=== PATIENT | female | born 1970 | race Caucasian/White ===

== ENCOUNTER 2019-12-01 14:30 | Emergency (ER) | payer OTHER, SELFPAY ==
[2019-12-01 14:37] VITALS: BP 120/89; PULSE 86; RESP 20; TEMP 36.6; O2SAT 96
--- NOTE | 2019-12-01 14:58 | ED.URI ---
HPI - URI/Sore Throat General Chief Complaint: Upper Respiratory Infection Stated Complaint: body aches/sore throat Time Seen by Provider: 12/01/19 14:49 Source: patient and RN notes reviewed Mode of arrival: ambulatory Limitations: no limitations History of Present Illness HPI Narrative: Patient presents today complaining of a 2-day history of sore throat, body aches, white spots on the tonsils, headache. Reports chronic cough due to allergies. Denies fever or shortness of breath. Currently rates her pain 4/10 and has been taking Tylenol with some relief. Patient gets COVID-19 testing weekly at her job and has been negative for the past 17 weeks. MD elicited complaint: sore throat Related Data Allergies Allergy/AdvReac Type Severity Reaction Status Date / Time celecoxib Allergy Unknown Itching Verified 11/15/18 16:16 codeine Allergy Unknown Verified 01/04/17 11:37 Penicillins Allergy Unknown Verified 06/27/16 16:04 Review of Systems Review of Systems: Narrative: CONSTITUTIONAL: Denies fever, chills, or sweats. + Body aches EYES: Denies visual changes, redness, or discharge. ENT: Denies rhinorrhea, congestion, or otalgia. + Sore throat CARDIOVASCULAR: Denies chest pain, palpitations, or edema. RESPIRATORY: Denies cough or dyspnea. GASTROINTESTINAL: Denies abdominal pain, nausea, vomiting, or diarrhea. GENITOURINARY: Denies dysuria or hematuria. SKIN: Denies rash, itching, or wounds. MUSCULOSKELETAL: Denies back pain, joint pain, or myalgia. NEUROLOGIC: Denies numbness, tingling, or weakness. + Headache PSYCH: Denies depression or anxiety. [facility] Past Medical History Medical History (Updated 12/01/19 @ 14:59 by Asia Johansen, [facility], ) Anxiety Bulging disc Depression Diabetes Fracture of scaphoid bone of left wrist (01/19/19) HTN (hypertension) Left radial head fracture (01/19/19) Personal history of arthritis Skin abscess Surgical History Surgical History History of (~1987) History of cholecystectomy (~2004) History of medial meniscus repair of left knee (~2007) History of oophorectomy (~1999) Social History Social History Smoking status: Never smoker Alcohol intake: never Comments At time of signature, I have reviewed and agree with nursing past medical, surgical, social and family history unless otherwise noted. Please see nursing chart for further information. There is no relevant family history pertinent to the presenting complaint Exam Narrative: Exam Narrative: GENERAL: Well-appearing, well-nourished, and in no acute distress. HEAD: Normocephalic, atraumatic. EYES: EOMI. No redness or drainage. Conjunctivae normal. ENT: Mucous membranes pink and moist. Nares clear. No rhinorrhea. TMs normal bilaterally. Throat mildly erythematous with tonsils 2+ with white exudate. Uvula midline. NECK: Normal AROM. Supple. Bilateral anterior cervical chain lymphadenopathy. CHEST: No respiratory distress. Clear to auscultation. HEART: Regular rate and rhythm. No murmur appreciated. Normal peripheral pulses. EXTREMITIES: Normal range of motion. No edema. SKIN: Warm, dry, no rash. Capillary refill normal. Normal skin turgor. NEURO: No focal deficits. Alert and oriented x3. Gait steady. PSYCH: Normal affect. No signs of depression or anxiety. Course Vital Signs Vital signs: Vital Signs Temperature 97.9 F 12/01/19 14:37 Pulse Rate 86 12/01/19 14:37 Respiratory Rate 12/01/19 14:37 Blood Pressure 120/89 12/01/19 14:37 Pulse Oximetry 96 12/01/19 14:37 Temperature 97.9 F 12/01/19 14:37 Pulse Rate 86 12/01/19 14:37 Respiratory Rate 12/01/19 14:37 Blood Pressure 120/89 12/01/19 14:37 Pulse Oximetry 96 12/01/19 14:37 Reviewed. Pt has been instructed to follow up with her PCP regarding her elevated blood pressure today. HILDA - URI/Myra
== END 2019-12-01 15:05 | disposition home or self-care (01) ==
PROVIDERS: Emergency Provider Nurse Practitioner
DX: J02.8 Acute pharyngitis due to other specified organisms (principal); F41.9 Anxiety disorder, unspecified; F32.9 Major depressive disorder, single episode, unspecified; E11.9 Type 2 diabetes mellitus without complications; I10 Essential (primary) hypertension
CPT/HCPCS: 87081; 87880; 99213; G0463

== ENCOUNTER 2020-04-01 12:47 | Emergency (ER) | payer OTHER, SELFPAY ==
--- NOTE | ~2020-04-01 | XR_ITS ---
EXAMINATION: XR chest 2V DATE: 04/01/2020 13:40 INDICATION: Cough. TECHNIQUE: Frontal and lateral views of the chest were obtained. COMPARISON: Chest 2 views 06/29/16 FINDINGS: The chest demonstrates clear lungs without pneumonia, pleural effusion, or pneumothorax. Th e heart size is normal. There is a moderate-sized hiatal hernia. Surgical clips in the right upper qu adrant are likely from cholecystectomy. There is mild chronic anterior wedging of multiple vertebral bodies. IMPRESSION: 1. Moderate-sized hiatal hernia. Reviewed, dictated and finalized at location B. DEVELOPER
[2020-04-01 12:58] VITALS: BP 133/78; PULSE 74; RESP 18; TEMP 36.9; O2SAT 97
[2020-04-01 13:08] VITALS: PULSE 72
--- NOTE | 2020-04-01 13:08 | ECG_ITS ---
Measurements Intervals [place] Rate: 77 P: 18 MN: 164 QRS: 40 QRSD: 86 T: 25 QT: 375 QTc: 425 Interpretive Statements SINUS RHYTHM NORMAL ECG Electronically Signed On 04-01-2020 13:12:30 SALES CENTER ASSOCIATE by Gerald Kapadia D.O.
[2020-04-01] MEDS: Please add drug allergy info to patient profile. 1 EACH XX (13:22)
[2020-04-01 13:41] LABS: Basophils Percent Auto 0.4 % (0.2-1.2); Eosinophils Absolute Auto 0.1 K/mm3 (0-0.3); Eosinophils Percent Auto 1.2 % (0-4.4); Hematocrit 37.8 % (37.0-47.0); Hemoglobin 12.5 g/dL (12.0-15.0); Immature Granulocyte Absolute 0.02 K/mm3 (0.00-0.031); Immature Granulocyte Percent A 0.3 % (0-0.5); Lymphocytes Absolute Auto 2.27 K/mm3 (0.9-3.2); Lymphocytes Percent Auto 31.3 % (18.3-44.2); Mean Corpuscular HGB Conc 33.1 g/dl (32-36); Mean Corpuscular Volume 84.6 fl (80-100); Mean Platelet Volume 10.6 fl (7.4-10.4); Monocytes Absolute Auto 0.5 K/mm3 (0.1-0.6); Monocytes Percent Auto 6.3 % (2.6-8.5); Neutrophils Absolute Auto 4.4 K/mm3 (1.3-6.7); Neutrophils Percent Auto 60.5 % (45.5-73.1); Platelet Count Result 288 k/mm3 (150-375); Red Blood Count 4.47 M/mm3 (4.2-5.4); Red Cell Distribution Width 14.3 % (11.5-14.5); White Blood Count 7.3 K/mm3 (4.5-10.0)
[2020-04-01 13:48] VITALS: BP 126/70; PULSE 75; RESP 16; O2SAT 98
--- NOTE | 2020-04-01 13:51 | ED.GENADULT ---
HPI - General Adult General Chief complaint: Chest Pain Stated complaint: chest pain Time Seen by Provider: 04/01/20 12:50 Source: patient Mode of arrival: ambulatory Limitations: no limitations History of Present Illness HPI narrative: Patient presents with chief complaint of sharp stabbing pains just lateral to the left side of her sternum that was present randomly over the past week. Patient states at times he is feels that sharp pain once or twice and other times she still gets up to 12 times. Patient states that she feels that sharp sensations at rest or with activity. She denies having syncope, radiation of pain, diaphoresis, nausea, vomiting, diarrhea, fever, chills, vomiting. Patient states that she wonders if this is a result of the lingering cough she has had since tested positive for Covid on March 10. Patient states that she is occasionally noticeably her mucus. She states she has also had a lingering feeling of shortness of breath that has not worsened or intensified since having Covid. She feels like it is more of a lingering lax of prolonged endurance. Patient states she came to the ER to be evaluated just to be safe. She denies have any history of MA or stroke. Patient reports having hypertension and borderline diabetes. Patient is not having chest pain at this time. Related Data Allergies Allergy/AdvReac Type Severity Reaction Status Date / Time celecoxib [From Celebrex] Allergy Rash Verified 04/01/20 13:11 Penicillins Allergy Rash Verified 04/01/20 13:11 codeine AdvReac Vomiting Verified 04/01/20 13:11 Review of Systems Review of Systems: Narrative: CONSTITUTIONAL: Denies fever, chills, or sweats. EYES: Denies visual changes, redness, or discharge. ENT: Denies rhinorrhea, congestion, sore throat, or otalgia. CARDIOVASCULAR: Reports intermittent sharp chest pain denies palpitations, or edema. RESPIRATORY: Reports cough and lingering dyspnea with exertion denies dyspnea. GASTROINTESTINAL: Denies abdominal pain, nausea, vomiting, or diarrhea. GENITOURINARY: Denies dysuria or hematuria. SKIN: Denies rash or itching. MUSCULOSKELETAL: Denies back pain, joint pain, or myalgia. NEUROLOGIC: Denies headache, numbness, dizziness, or weakness. PSYCHIATRIC: Denies anxiety or depression. Exam Narrative: Exam Narrative: GENERAL: Well-appearing, well-nourished, and in no acute distress. HEAD: Normocephalic, atraumatic. EYES: PERRLA and EOMI. ENT: Bilateral TMs pearly coulter nonbulging NECK: Supple. No adenopathy or masses. Range of motion intact CHEST: Clear to auscultation. No respiratory distress. No wheezes rales or rhonchi. No tachypnea. HEART: Regular rate and rhythm. ABDOMEN: Soft, nontender, nondistended, normal active bowel sounds. EXTREMITIES: Normal range of motion. No edema. SKIN: Warm, dry, no rash. NEURO: No focal deficits. Alert and oriented x3. PSYCH: Normal mood and affect. Course Vital Signs Vital signs: Vital Signs Temperature 98.4 F 04/01/20 12:58 Pulse Rate 74 04/01/20 12:58 Respiratory Rate 18 04/01/20 12:58 Blood Pressure 133/78 04/01/20 12:58 Pulse Oximetry 97 04/01/20 12:58 Temperature 98.4 F 04/01/20 12:58 Pulse Rate 76 04/01/20 15:50 Respiratory Rate 20 04/01/20 15:50 Blood Pressure 133/78 04/01/20 15:50 Pulse Oximetry 98 04/01/20 15:50 Medical Decision Making MDM Narrative Medical decision making narrative: Patient is troponin, EKG and lab work is stable. Patient's x-ray imaging shows that she has a moderate sized hiatal hernia. Discussed with patient hiatal hernia protocol and the need for follow-up. Patient is not having persistent pain or any vomiting. Patient is resting comfortably in her bed at this time. Patient verbalized that she understands the need for follow-up. She states that she will follow-up and return will return to the emergency department if she develops any emergent symptoms. Differential Diagnosis Differential Diagnos
[2020-04-01 13:52] LABS: Alanine Aminotransferase 38 U/L (4-35); Alkaline Phosphatase 63 U/L (38-126); Anion Gap 5 mmol/L (8-16); Aspartate Amino Transferase 32 U/L (14-36); Bilirubin,Total 0.5 mg/dL (0.2-1.3); Blood Urea Nitrogen 15 mg/dL (7-17); Calcium 9.1 mg/dL (8.4-10.2); Carbon Dioxide 31 mmol/L (22-30); Chloride 102 mmol/L (98-107); Estimated CRCL calculation 84 ml/min; Estimated Glomerular Filt Rate > 60; Glucose 148 mg/dL (65-105); Potassium 3.8 mmol/L (3.4-5.0); Sodium 138 mmol/L (137-145)
[2020-04-01 14:02] LABS: Add Urine Microscopic? YES; Appearance Urine Clear (Clear); Bacteria Urine Trace /hpf; Bilirubin Urine Negative (Negative); Blood Urine Negative (Negative); Color Urine Yellow (Yellow); Glucose Urine UA Negative (Negative); Ketones Urine Negative (Negative); Leukocyte Esterase Ur Trace LEU/UL (Negative); Mucus Urine Rare /lpf; Nitrate Urine Negative (Negative); Protein Urine Negative (Negative); RBC Urine 0-2 /hpf (0-2); Specific Grav Ur 1.015 (1.001-1.035); Squamous Epithelial Cell Urine Few /hpf (Few); Urobilinogen Urine Negative mg/dL (<2.0); WBC Urine 0-3 /hpf
[2020-04-01 14:03] LABS: Troponin I < 0.012 ng/mL (0.000-0.034)
[2020-04-01 14:30] VITALS: BP 119/64; PULSE 69; RESP 20; O2SAT 97
[2020-04-01 15:08] LABS: D Dimer 0.37 ug/mL (<0.48)
[2020-04-01 15:11] VITALS: BP 116/70; PULSE 75; RESP 18; O2SAT 97
[2020-04-01 15:50] VITALS: BP 133/78; PULSE 76; RESP 20; O2SAT 98
== END 2020-04-01 15:50 | disposition home or self-care (01) ==
PROVIDERS: Physician Assistant; Emergency Provider Emergency Medicine; PCP Family Medicine
DX: K44.9 Diaphragmatic hernia without obstruction or gangrene (principal)
CPT/HCPCS: 36415; 71046; 80053; 81001; 84484; 85025; 85380; 93005; 99284

== ENCOUNTER 2021-03-01 13:32 | Outpatient (CLI) | payer OTHER, SELFPAY ==
--- NOTE | ~2021-03-01 | MM_ITS ---
EXAMINATION: MM diagnostic randy BI w vero HISTORY: Possible abscess of the skin of the breasts TECHNIQUE: Craniocaudal, mediolateral, and mediolateral oblique 3-D tomosynthesis images of the breas ts were performed and synthetic 2-D images were generated. CAD analysis was submitted and interpreted . COMPARISON: 03/11/2015, 11/27/2012, 11/13/2012 BREAST PARENCHYMAL COMPOSITION: The breasts are almost entirely fatty. FINDINGS: There is no evidence of suspicious mass, calcification, or architectural distortion in eith er breast to suggest malignancy. There has been no suspicious interval change. There are sebaceous c ysts in the middle third of the outer right breast the 9:00 location in the inframammary fold of the slightly inner right breast. IMPRESSION: 1. Sebaceous cysts without mammographic evidence of malignancy. 2. Recommend routine screening mammography in one year. BI-RADS Category 2: Benign finding(s). Reviewed, dictated and finalized at location A. STRAIGHTENER
== END 2021-03-01 13:33 | disposition home or self-care (01) ==
LOC: ANHIMG 13:34
PROVIDERS: PCP Family Medicine; Visit Provider Nurse Practitioner Family
DX: N61.1 Abscess of the breast and nipple (principal); N60.01 Solitary cyst of right breast
CPT/HCPCS: 77062; 77066; G0279

== ENCOUNTER 2021-06-09 14:45 | Emergency (ER) | payer OTHER, SELFPAY ==
--- NOTE | ~2021-06-09 | XR_ITS ---
XR abdomen/kub 1V DATE: 06/09/2021 15:21 INDICATION: Left flank pain, hematuria TECHNIQUE: Supine AP view COMPARISON: 12/04/[address] abdomen pelvis FINDINGS: Surgical clips, right upper quadrant, consistent with cholecystectomy. The psoas shadows are intact. No visceromegaly is evident. There is a prominent of fecal material in the right and transverse colon. No bowel obstruction. No urinary tract calcification is noted. Bilateral calcified pelvic phleboliths. IMPRESSION: Nonspecific abdomen Status post cholecystectomy Reviewed, dictated and finalized at Location A. Reviewed, dictated and finalized at location A.
[2021-06-09 14:56] VITALS: BP 135/72; PULSE 79; RESP 16; TEMP 36.4; O2SAT 100
--- NOTE | 2021-06-09 14:59 | ED.FEMALEGU ---
HPI - Female Genitourinary General Chief complaint: Urogenital-Female Stated complaint: uti symptoms Time Seen by Provider: 06/09/21 14:59 Source: patient and RN notes reviewed Mode of arrival: ambulatory Limitations: no limitations History of Present Illness HPI Narrative: 50y/o female presented for c/o dysuria, frequency, odor, and bladder spasms for the last few days. Also endorses left lateral abdominal pain. States she was prescribed Rx macrobid 05/05/21 for UTI, was instructed to stop when culture revealed normal maryse no infection. She continued the antibiotic at the time because it was almost completed. States sx improved. Denies associated hematuria, flank pain, n/v/d/constipation f/c. Related Data Home Medications Medication Instructions Recorded Confirmed loratadine 10 mg tablet 10 mg PO DAILY 01/08/21 06/09/21 sertraline 100 mg tablet 150 mg PO DAILY tablet 01/08/21 06/09/21 Allergies Allergy/AdvReac Type Severity Reaction Status Date / Time celecoxib Allergy Unknown Itching Verified 06/09/21 14:48 codeine Allergy Unknown Unknown Verified 06/09/21 14:48 Penicillins Allergy Unknown unknown Verified 06/09/21 14:48 Review of Systems Review of Systems: CONSTITUTIONAL: Denies body aches, fever, chills, or sweats. CARDIOVASCULAR: Denies chest pain, palpitations, or edema. RESPIRATORY: Denies cough or dyspnea. GASTROINTESTINAL: Denies abdominal pain, nausea, vomiting, or diarrhea. GENITOURINARY: Reports dysuria, frequency, urgency,denies hematuria, flank pain SKIN: Denies rash, itching, or wounds. MUSCULOSKELETAL: Denies back pain or myalgia. [facility] Past Medical History Medical History Anxiety Asthma Bulging disc Depression Diabetes Fracture of scaphoid bone of left wrist (01/19/19) History of COVID-19 (~02/2020) HTN (hypertension) Hyperlipidemia Left radial head fracture (01/19/19) Personal history of arthritis Skin abscess Surgical History Surgical History History of (~1987) History of cholecystectomy (~2004) History of medial meniscus repair of left knee (~2007) History of oophorectomy (~1999) Family History Family History Mother Hypertension Family history of osteoarthritis Family history of thyroid disease Family history of rheumatoid arthritis Father Hypertension Family history of osteoarthritis Family history of kidney disease Family history of diabetes mellitus in first degree relative Family history of renal failure Family history of heart disease in male family member before age 55 Family history of congestive heart failure Family history of coronary artery disease Diabetes mellitus Family history of osteoporosis Asthma Sibling Family history of kidney disease Asthma Family history of diabetes mellitus in first degree relative Family history of renal failure Grandparent Depression Family history of arthritis Family history of malignant neoplasm Family history of chronic obstructive pulmonary disease Family history of congestive heart failure Other Family history of cardiovascular disease Social History Social History Smoking status: Never smoker Alcohol intake: never Comments At time of signature, I have reviewed and agree with nursing past medical, surgical, social and family history unless otherwise noted. Please see nursing chart for further information. There is no relevant family history pertinent to the presenting complaint Exam Narrative: GENERAL: Well-appearing HEAD: Normocephalic EYES: EOMI. ENT: Mucous membranes pink and moist. NECK: Normal AROM. Supple. CHEST: No respiratory distress. Clear to auscultation. HEART: Regular rate and rhythm. ABDOMEN: Soft, Tender to Left lateral abdomen; no
== END 2021-06-09 15:32 | disposition home or self-care (01) ==
PROVIDERS: Emergency Provider Nurse Practitioner Family; PCP Nurse Practitioner Family
DX: R30.0 Dysuria (principal); F41.9 Anxiety disorder, unspecified; F32.9 Major depressive disorder, single episode, unspecified; E11.9 Type 2 diabetes mellitus without complications; I10 Essential (primary) hypertension; E78.5 Hyperlipidemia, unspecified; J45.909 Unspecified asthma, uncomplicated
CPT/HCPCS: 74018; 81003; 87077; 87086; 87186; 99213; G0463

== ENCOUNTER 2022-01-22 00:12 | Emergency (ER) | payer OTHER, SELFPAY ==
--- NOTE | ~2022-01-22 | CT_ITS ---
EXAMINATION: CT cervical spine wo con DATE: 01/22/2022 00:52 INDICATION: Head injury, neck pain TECHNIQUE: Computed tomography (CT) of the cervical spine was performed without intravenous contrast. The dose-length product (DLP) was 525.15 mGy-cm. Automated exposure control and iterative reconstruc tion technique were employed. COMPARISON: 08/15/2014 FINDINGS: No fracture, dislocation, or subluxation of the cervical spine. The cervical vertebral body heights, alignment, and intervertebral disc spaces are normal. The paravertebral soft tissues are un remarkable. The odontoid is intact. There is an age-indeterminate anterior compression fracture of T3 , new since the comparison examination. IMPRESSION: 1. No acute osseous abnormality of the cervical spine. 2. Age indeterminate compression fracture of T3. Reviewed, dictated and finalized at location A. RN CLERK
--- NOTE | ~2022-01-22 | CT_ITS ---
EXAMINATION: CT brain wo con INDICATION: Head injury COMPARISON: None TECHNIQUE: Standard unenhanced head CT. The dose-length product (DLP) was 681.00 mGy-cm. The mA was a djusted according to patient size. Iterative reconstruction technique was employed. FINDINGS: There is no intracranial hemorrhage, acute infarction, or abnormal mass lesion. The ventric les are normal. There is no abnormal mass effect or midline shift. The coulter-white matter differentiat ion is normal. The basal cisterns are patent. The orbits are normal. The paranasal sinuses, mastoids and calvarium are normal. IMPRESSION: 1. No acute intracranial abnormality. Reviewed, dictated and finalized at location A. CTOR OF SLEEP
[2022-01-22 00:19] VITALS: BP 135/84; PULSE 64; RESP 16; TEMP 36.3; O2SAT 98
--- NOTE | 2022-01-22 00:35 | ED.GENADULT ---
HPI - General Adult General Chief complaint: Head Injury <KEIRY Timmons Last Filed: 01/22/22 02:27> Stated complaint: fall, landed on head, LOC <Kesha Puente PA-C - Last Filed: 01/22/22 02:27> Time Seen by Provider: 01/22/22 00:26 <KEIRY Timmons Last Filed: 01/22/22 02:27> History of Present Illness HPI narrative: Patient is a 51-year-old female here for evaluation after head injury. Patient states that she was walking in her usual state of health about an hour prior to arrival, when she tripped on an air mattress on the floor, causing her to fall forward and strike her head against the ground. Patient did have witnessed loss of consciousness for about 15 seconds. Patient states that when she woke up she felt nauseated and has a frontal headache. No vomiting, no seizure-like activities or disorientation. No retrograde or anterograde amnesia. No blood thinner use. She is unsure of her last tetanus shot. <KEIRY Timmons Last Filed: 01/22/22 02:27> Related Data Home medications: Home Medications Medication Instructions Recorded Confirmed loratadine 10 mg tablet (Claritin) 10 mg PO DAILY 01/08/21 07/30/21 famotidine 20 mg tablet 20 mg PO DAILY 07/30/21 07/30/21 <KEIRY Timmons Last Filed: 01/22/22 02:27> Allergies/adverse reactions: Allergies Allergy/AdvReac Type Severity Reaction Status Date / Time celecoxib Allergy Unknown Itching Verified 01/22/22 00:15 codeine Allergy Unknown Unknown Verified 01/22/22 00:15 Penicillins Allergy Unknown unknown Verified 01/22/22 00:15 <KEIRY Timmons Last Filed: 01/22/22 02:27> Review of Systems Review of Systems: Gen: Denies fevers or chills Eyes: Denies eye pain or visual change ENT: Denies congestion Respiratory: Denies shortness of breath or cough CV: Denies chest pain or palpitations GI: Reports nausea. Denies abdominal pain, emesis or diarrhea : denies burning, urgency, frequency or hematuria Musculoskeletal: Denies back pain or muscle pain Neuro: Reports headache. Denies numbness, tingling, weakness or focal weakness Skin: Denies rash Except as documented, all other systems reviewed and negative <Kesha Puente PA-C - Last Filed: 01/22/22 02:27> [facility] Past Medical History Medical History: Medical History Anxiety Asthma Bulging disc Depression Diabetes Fracture of scaphoid bone of left wrist (01/19/19) History of COVID-19 (~02/2020) HTN (hypertension) Hyperlipidemia Left radial head fracture (01/19/19) Lumbar back pain with radiculopathy affecting lower extremity Personal history of arthritis Skin abscess <Kesha Puente PA-C - Last Filed: 01/22/22 02:27> Surgical History Surgical History: Surgical History History of (~1987) History of cholecystectomy (~2004) History of medial meniscus repair of left knee (~2007) History of oophorectomy (~1999) <Kesha Puente PA-C - Last Filed: 01/22/22 02:27> Family History Family History: Family History Mother Hypertension Family history of osteoarthritis Family history of thyroid disease Family history of rheumatoid arthritis Father Hypertension Family history of diabetes mellitus in first degree relative Family history of renal failure Family history of heart disease in male family member before age 55 Family history of congestive heart failure Family history of coronary artery disease Diabetes mellitus Family history of osteoporosis Asthma Family history of osteoarthritis Family history of kidney disease Sibling Family history of kidney disease Asthma Family history of diabetes mellitus in first degree relative Family history of renal failure Grand
[2022-01-22] MEDS: ONDANSETRON HCL ODT 4 MG TABLET PO (00:55)
[2022-01-22] MEDS: ACETAMINOPHEN 500 MG TABLET 1000 MG PO (00:55)
[2022-01-22] MEDS: TETANUS,DIPHTHERIA,AC PERTUSSIS ADULT (0.5 ML) BOOSTRIX IM (01:58)
== END 2022-01-22 02:15 | disposition home or self-care (01) ==
PROVIDERS: Emergency Provider Emergency Medicine; PCP Family Medicine
DX: S09.90XA Unspecified injury of head, initial encounter (principal); E11.9 Type 2 diabetes mellitus without complications; I10 Essential (primary) hypertension; E78.5 Hyperlipidemia, unspecified; Z23 Encounter for immunization; W01.0XXA Fall on same level from slipping, tripping and stumbling without subsequent striking against object, initial encounter
CPT/HCPCS: 70450; 72125; 90471; 90715; 99284; A9270

== ENCOUNTER 2022-02-17 15:09 | Outpatient (CLI) | payer OTHER, SELFPAY ==
--- NOTE | ~2022-02-17 | DEXA_ITS ---
Bone Density Report Name: SYDNI ZAMORA Age: 51 Sex: Female Ethnicity: White Date of : 1970 Indication: postmenopausal; screening for osteoporosis; height loss; prior fracture; asthma or emphysema; hysterectomy; Referring Provider: JENNIFER KENNEDY Study: Bone densitometry was performed. Exam Date: February 17, 2022 Accession number: [id number] Bone Density: Region BMD T-score Z-score Classification AP Spine(L1-L4) 0.973 -0.7 0.3 Normal Femoral Neck (Left) 0.795 -0.5 0.5 Normal Total Hip (Left) 1.124 1.5 2.1 Normal Femoral Neck (Right) 0.799 -0.5 0.5 Normal Total Hip (Right) 1.131 1.5 2.1 Normal Total Hip Mean 1.127 1.5 2.1 Normal World Health Organization criteria for BMD impression classify patients as: Normal (T-score at or above -1.0), Osteopenia (T-score between -1.0 and -2.5), or Osteoporosis (T-score at or below -2.5). 10-year Fracture Risk: FRAX not reported because: All T-scores for Spine Total, Hip Total, Femoral Neck at or above -1.0 Prior hip or vertebral fracture Previous Exams: Region Exam Age BMD T-score BMD Change BMD Change Date g/cm2 vs Baseline vs Previous AP Spine (L1-L4) 02/17/2022 51 0.973 -0.7 -0.068 (-6.5%) -0.068 (-6.5%) 03/11/2015 44 1.041 -0.1 Total Hip(Left) 02/17/2022 51 1.124 1.5 -0.077 (-6.4%) -0.077 (-6.4%) 03/11/2015 44 1.200 2.1 Total Hip(Right) 02/17/2022 51 1.131 1.5 -0.015 (-1.3%) -0.015 (-1.3%) 03/11/2015 44 1.146 1.7 *Denotes significance at 95% confidence level, LSC for AP Spine = 0.022 g/cm2, LSC for Total Hip = 0.027 g/cm2 Clinical Information Provided by Patient: Have had a previous hip or vertebral fracture Has had a low trauma fracture Has the following medical conditions: Asthma or Emphysema, Hysterectomy Patient maximum height was 63 Menopause Age: 28 No regular weight bearing exercise Drinks caffeinated beverages Onset of menses at age 10 Number of children 3 Impression: The patient has normal bone mass. The patient has risk factors, including: previous fracture. The BMD for the AP Spine (L1-L4) decreased, changing by -6.5% since the last DXA exam. The BMD for the Total Hip(Left) decreased, changing by -6.4% since the last DXA exam. Discussion: INCREASED RISK OF FRACTURE DUE TO HISTORY OF FRACTURE. The patient's previous fracture puts the patient at high risk of a future fracture. In untreated patients, the risk of osteoporotic fra
== END 2022-02-17 15:10 | disposition home or self-care (01) ==
LOC: ANHIMG 15:10
PROVIDERS: PCP Family Medicine; Visit Provider Family Medicine
DX: Z78.0 Asymptomatic menopausal state (principal)
CPT/HCPCS: 77080

== ENCOUNTER 2022-06-24 01:43 | Day surgery (SDC) | payer OTHER, SELFPAY ==
[2022-06-13 10:20] VITALS: BMI 42.8
--- NOTE | 2022-06-23 14:17 | PM.HPGS ---
History of Present Illness History of Present Illness Consent: Risks, benefits, and alternatives have been discussed and questions answered. Patient agrees to proceed with procedure. Chief complaint: GERD, dysphagia, Neoplasm screening Narrative: Michelle Schmitt is a 51 year old female Who For several years now she has had difficulty with swallowing.? It has gotten to the point where about 5 times a week she will feel food usually solid food, gets stuck in her esophagus.? She may make herself vomit after which she will bring up a food bolus and mucus.? On other occasions she simply needs to wait a few minutes for the past she was told that she had a hiatal hernia when she had x-rays done at the time of a visit to the emergency room because of chest pain.? She takes famotidine once a day because she does get heartburn from time to time but is not a daily problem.? She has had no weight loss.? she is also due for colon cancer screening. Review of Systems Review of Systems: All systems reviewed & are unremarkable except as noted in HPI and below PMFSH Past Medical History Medical History Anxiety Asthma Bulging disc Chronic bilateral low back pain with bilateral sciatica Compression fracture of T3 vertebra Depression Depressive disorder Diabetes Fibromyalgia affecting multiple sites Fracture of scaphoid bone of left wrist (01/19/19) Generalized anxiety disorder GERD without esophagitis History of COVID-19 (~02/2020) HTN (hypertension) Hyperlipidemia Left radial head fracture (01/19/19) Lumbar back pain with radiculopathy affecting lower extremity Multiple joint pain Osteopenia Personal history of arthritis Prediabetes Skin abscess Surgical History Surgical History History of (~1987) History of cholecystectomy (~2004) History of medial meniscus repair of left knee (~2007) History of oophorectomy (~1999) Family History Family History Mother Hypertension Family history of osteoarthritis Family history of thyroid disease Family history of rheumatoid arthritis Father Hypertension Family history of diabetes mellitus in first degree relative Family history of renal failure Family history of heart disease in male family member before age 55 Family history of congestive heart failure Family history of coronary artery disease Diabetes mellitus Family history of osteoporosis Asthma Family history of osteoarthritis Family history of kidney disease Sibling Family history of kidney disease Asthma Family history of diabetes mellitus in first degree relative Family history of renal failure Grandparent Depression Family history of arthritis Family history of malignant neoplasm Family history of chronic obstructive pulmonary disease Family history of congestive heart failure Other Family history of cardiovascular disease Social History Social History Smoking status: Never smoker Alcohol intake: current Alcohol use details: rarely Substance use: never Substance use type: does not use Lack of Transportation: No Lack of Food: Never True Current Housing: I Have Housing Concerned About Future Housing: No Difficulty Paying Gas/Electric Bills: No Difficulty Paying for Meds: No Currently Unemployed: No Education: Associate Degree Difficulty w/ Childcare or Family Care: No Living arrangements: with family Additional living arrangements comments: Occupation/Education: occupation Gender identity (if verbalized by the patient): Female Sexual Orientation (if Verbalized by the Patient): Straight or Heterosexual Spiritual care concerns: No Agree to blood products: Yes Meds Home Medications and Allergies Home Medications Medication Instr
[2022-06-24 09:01] VITALS: BP 110/69; PULSE 78; RESP 18; TEMP 36.4; O2SAT 99
[2022-06-24] MEDS: LACTATED RINGERS 1,000 ML 150 ML IV CONT (09:50)
[2022-06-24 09:55] LABS: Glucose Point of Care 115 mg/dl (65-105)
--- NOTE | 2022-06-24 10:07 | WPDANESEPPF ---
Anes - Initial Pre Proc Eval Procedure: Operation Date: 06/24/22 10:30 Proposed Procedures p Esophagogastroduodenoscopy & Screening Colonoscopy - Speedy Curiel MD Date/Time: 06/24/22 10:07 Surgeon: Speedy Curiel MD Pre Op Diagnosis: GERD, dysphagia, Neoplasm screening Patient Data Age: 51 Gender: F Height: 1.57 m Weight: 104.6 kg Last Vital Signs Temp 97.6 F 06/24/22 09:01 Pulse 78 06/24/22 09:01 Resp 18 06/24/22 09:01 BP 110/69 06/24/22 09:01 Pulse Ox 99 06/24/22 09:01 O2 Del Method Room Air 06/24/22 09:01 Allergies Allergy/AdvReac Type Severity Reaction Status Date / Time celecoxib Allergy Unknown Itching Verified 06/24/22 09:00 codeine Allergy Unknown Unknown Verified 06/24/22 09:00 Penicillins Allergy Unknown unknown Verified 06/24/22 09:00 Home Medications Medication Instructions Recorded Confirmed Type loratadine 10 mg tablet (Claritin) 10 mg PO DAILY 01/08/21 06/13/22 History albuterol sulfate 90 mcg/actuation 2 inh inhalation QID PRN shortness 05/05/21 06/13/22 Rx breath activated powder inhaler of breath #1 ea famotidine 20 mg tablet 20 mg PO DAILY 07/30/21 06/13/22 History sertraline 100 mg tablet 150 mg PO DAILY #135 tabs 04/18/22 06/13/22 Rx meloxicam 15 mg tablet 15 mg PO DAILY #90 tabs 04/20/22 06/13/22 Rx lisinopril 10 1 tablet PO DAILY #90 tabs 05/04/22 06/13/22 Rx mg-hydrochlorothiazide 12.5 mg tablet calcium phos,tribasic 260 mg-D3 25 1 tablet PO .QD 05/13/22 06/13/22 History mcg-herbal 50 mg chewable tablet (Alive Calcium-Vitamin D3) metformin 500 mg tablet 500 mg PO DAILY #90 tabs 05/13/22 06/13/22 Rx semaglutide 0.25 mg or 0.5 mg (2 0.25 mg (0.2 mL) subcut WEEKLY 03/06/23 04/03/23 Rx mg/1.5 mL) subcutaneous pen #1.5 mL injector (Ozempic) tramadol 50 mg tablet 50 mg PO Q6H PRN pain #60 tabs 06/10/22 06/13/22 Rx Laboratory Tests 06/24/22 09:48 POC Capillary Glucose 115 mg/dl H mg/dl (65-105) Patient hx anesthesia problems: none Family hx anesthesia problems: none Results Review: All pre-operative results and documents have been reviewed as part of the pre-operative evaluation. [facility] Past Medical History Medical History Anxiety Asthma Bulging disc Chronic bilateral low back pain with bilateral sciatica Compression fracture of T3 vertebra Depression Depressive disorder Diabetes Fibromyalgia affecting multiple sites Fracture of scaphoid bone of left wrist (01/19/19) Generalized anxiety disorder GERD without esophagitis History of COVID-19 (~02/2020) HTN (hypertension) Hyperlipidemia Left radial head fracture (01/19/19) Lumbar back pain with radiculopathy affecting lower extremity Multiple joint pain Osteopenia Personal history of arthritis Prediabetes Skin abscess Surgical History Surgical History History of (~1987) History of cholecystectomy (~2004) History of medial meniscus repair of left knee (~2007) History of oophorectomy (~1999) Family History Family History Mother Hypertension Family history of osteoarthritis Family history of thyroid disease Family history of rheumatoid arthritis Father Hypertension Family history of diabetes mellitus in first degree relative Family history of renal failure Family history of heart disease in male family member before age 55 Family history of congestive heart failure Family history of coronary artery disease Diabetes mellitus Family history of osteoporosis Asthma Family history of osteoarthritis Family history of kidney disease Sibling Family history of kidney disease Asthma Family history of diabetes mellitus in first degree relative Family history of renal failure Grandparent Depression Family history of arthritis Family history of malignant neoplasm F
[2022-06-24] MEDS: BENZOCAINE (*SP) 60 ML SPRAY CAN (HURRICAINE) 1 SPRAY MUCOUS MEM (10:35)
--- NOTE | 2022-06-24 10:38 | SUR.OPER ---
EGD: [id number] COLON: [id number]
[2022-06-24] MEDS: SIMETHICONE ORAL SUSPENSION 20 MG/0.3 ML 30 ML BOTTLE 0.6 ML IRRIGATION (10:58)
[2022-06-24 11:06] VITALS: BP 111/73; PULSE 93; RESP 27; O2SAT 99
[2022-06-24 11:16] VITALS: BP 127/81; PULSE 71; RESP 22; O2SAT 98
[2022-06-24 11:26] VITALS: BP 119/61; PULSE 70; RESP 22; O2SAT 98
== END 2022-06-24 11:44 | disposition home or self-care (01) ==
PROVIDERS: PCP Family Medicine; Visit Provider Internal Medicine Gastroenterology
PROC: 0DJ08ZZ Inspection of Upper Intestinal Tract, Via Natural or Artificial Opening Endoscopic (ICD-10-PCS; CPT 43235; principal; 2022-06-24 10:30)
DX: Z12.11 Encounter for screening for malignant neoplasm of colon (principal); K57.30 Diverticulosis of large intestine without perforation or abscess without bleeding; K22.2 Esophageal obstruction; K44.9 Diaphragmatic hernia without obstruction or gangrene; I10 Essential (primary) hypertension; E78.5 Hyperlipidemia, unspecified; J45.909 Unspecified asthma, uncomplicated; E11.9 Type 2 diabetes mellitus without complications; M79.7 Fibromyalgia; F41.1 Generalized anxiety disorder; F32.A Depression, unspecified; E66.01 Morbid (severe) obesity due to excess calories; Z68.41 Body mass index [BMI] 40.0-44.9, adult; Z79.51 Long term (current) use of inhaled steroids; Z79.84 Long term (current) use of oral hypoglycemic drugs; Z79.899 Other long term (current) drug therapy
CPT/HCPCS: 45378; 43249; 82948; 88305; 88342; C1726; J2704; J7120

== ENCOUNTER 2022-09-04 19:05 | Emergency (ER) | payer OTHER, SELFPAY ==
--- NOTE | ~2022-09-04 | XR_ITS ---
AP and oblique views of the left ribs, and PA chest radiograph Clinical History: Pain Findings: No rib fracture is seen. Osseous alignment is anatomic. Lungs are clear, without focal cons olidation or pleural effusion. Cardiomediastinal contour is within normal limits. Soft tissues are un remarkable. Impression: No rib fracture is seen. Reviewed, dictated and finalized at [facility]. Impression: No rib fracture is seen.
[2022-09-04 19:15] VITALS: BP 123/73; PULSE 83; RESP 16; TEMP 36.3; O2SAT 98
--- NOTE | 2022-09-04 19:25 | ED.GENADULT ---
HPI - General Adult General Stated complaint: fall,left rib inj, uti symptoms Source: patient and RN notes reviewed Mode of arrival: ambulatory Limitations: no limitations History of Present Illness HPI narrative: 51 y/o female with hx HTN, preDM, presented for c/o left rib pain after fall this morning at 0300. States she tripped while walking in the dark yard when she checked on a chicken. She landed on the left side. Rib pain is just under left breast, tender with light touch. Rates 3/10 at rest, worse with any movement. Denies sob, wheezing, cp, palpitations, neck pain or dizziness. Taking Tylenol and Tramadol. Denies hitting her head or LOC. Patient also reports burning with urination, frequency and urgency since this morning. States she has had similar symptoms over the past week, which she attributed to dehydration. After pushing fluids she felt better until today. Denies abdominal pain, flank pain, hematuria, n/v/d/f/c. Related Data Home Medications Medication Instructions Recorded Confirmed loratadine 10 mg tablet (Claritin) 10 mg PO DAILY 01/08/21 09/04/22 famotidine 20 mg tablet 20 mg PO DAILY 07/30/21 09/04/22 Allergies Allergy/AdvReac Type Severity Reaction Status Date / Time celecoxib Allergy Unknown Itching Verified 09/04/22 19:28 codeine Allergy Unknown Unknown Verified 09/04/22 19:28 Penicillins Allergy Unknown unknown Verified 09/04/22 19:28 Review of Systems Review of Systems: CONSTITUTIONAL: Denies body aches, fever, chills, or sweats. CARDIOVASCULAR: Denies chest pain, palpitations, or edema. RESPIRATORY: Denies cough or dyspnea. GASTROINTESTINAL: Denies abdominal pain, nausea, vomiting, or diarrhea. GENITOURINARY: Reports dysuria, frequency, urgency, denies hematuria, flank pain SKIN: Denies rash, itching, or wounds. MUSCULOSKELETAL: Reports left rib and back pain PMFSH Past Medical History Medical History Anxiety Asthma Bulging disc Chronic bilateral low back pain with bilateral sciatica Compression fracture of T3 vertebra Depression Depressive disorder Diabetes Fibromyalgia affecting multiple sites Fracture of scaphoid bone of left wrist (01/19/19) Generalized anxiety disorder GERD without esophagitis History of COVID-19 (~02/2020) HTN (hypertension) Hyperlipidemia Left radial head fracture (01/19/19) Lumbar back pain with radiculopathy affecting lower extremity Multiple joint pain Osteopenia Personal history of arthritis Prediabetes Skin abscess Surgical History Surgical History History of (~1987) History of cholecystectomy (~2004) History of medial meniscus repair of left knee (~2007) History of oophorectomy (~1999) Family History Family History Mother Hypertension Family history of osteoarthritis Family history of thyroid disease Family history of rheumatoid arthritis Father Hypertension Family history of diabetes mellitus in first degree relative Family history of renal failure Family history of heart disease in male family member before age 55 Family history of congestive heart failure Family history of coronary artery disease Diabetes mellitus Family history of osteoporosis Asthma Family history of osteoarthritis Family history of kidney disease Sibling Family history of kidney disease Asthma Family history of diabetes mellitus in first degree relative Family history of renal failure Grandparent Depression Family history of arthritis Family history of malignant neoplasm Family history of chronic obstructive pulmonary disease Family history of congestive heart failure Other Family history of cardiovascular disease Social History Social History Smoking status: Never smoker Alcohol intake: current
== END 2022-09-04 19:53 | disposition home or self-care (01) ==
PROVIDERS: Emergency Provider Nurse Practitioner Family; PCP Family Medicine
DX: R07.81 Pleurodynia (principal); N39.0 Urinary tract infection, site not specified; J45.909 Unspecified asthma, uncomplicated; E11.9 Type 2 diabetes mellitus without complications; M79.7 Fibromyalgia; K21.9 Gastro-esophageal reflux disease without esophagitis; I10 Essential (primary) hypertension; E78.5 Hyperlipidemia, unspecified; M85.80 Other specified disorders of bone density and structure, unspecified site; F41.1 Generalized anxiety disorder; F32.A Depression, unspecified; Z79.84 Long term (current) use of oral hypoglycemic drugs
CPT/HCPCS: 71101; 81003; 87086; 99213; G0463

== ENCOUNTER 2022-09-30 00:12 | Day surgery (SDC) | payer OTHER, SELFPAY ==
[2022-09-19 13:27] VITALS: BMI 39.6
--- NOTE | 2022-09-30 10:07 | WPDANESEPPF ---
Anes - Initial Pre Proc Eval Procedure: Operation Date: 09/30/22 12:30 Proposed Procedures p Esophagogastroduodenoscopy - Speedy Curiel MD Date/Time: 09/30/22 10:07 Surgeon: Speedy Curiel MD Pre Op Diagnosis: Esophageal Stricture Patient Data Age: 51 Gender: F Height: 1.57 m Weight: 98.5 kg Allergies Allergy/AdvReac Type Severity Reaction Status Date / Time celecoxib Allergy Unknown Itching Verified 09/30/22 11:14 codeine Allergy Unknown Unknown Verified 09/30/22 11:14 Penicillins Allergy Unknown unknown Verified 09/30/22 11:14 Home Medications Medication Instructions Recorded Confirmed Type loratadine 10 mg tablet (Claritin) 10 mg PO DAILY 01/08/21 09/19/22 History albuterol sulfate 90 mcg/actuation 2 inh inhalation QID PRN shortness 05/05/21 09/19/22 Rx breath activated powder inhaler of breath #1 ea sertraline 100 mg tablet 150 mg PO DAILY #135 tabs 04/18/22 09/19/22 Rx pantoprazole 40 mg tablet,delayed 40 mg PO QAM #30 tabs 06/24/22 09/19/22 Rx release semaglutide 0.25 mg or 0.5 mg (2 0.25 mg (0.2 mL) subcut WEEKLY #3 07/13/22 09/19/22 Rx mg/1.5 mL) subcutaneous pen mL injector (Ozempic) lisinopril 10 1 tablet PO DAILY #90 tabs 08/09/22 09/19/22 Rx mg-hydrochlorothiazide 12.5 mg tablet ondansetron 4 mg disintegrating 4 mg PO Q8H PRN nausea and 08/12/22 09/19/22 Rx tablet vomiting #30 tabs tramadol 50 mg tablet 50 mg PO BID PRN pain #60 tabs 09/12/22 09/19/22 Rx meloxicam 15 mg tablet 15 mg PO DAILY 09/19/22 09/19/22 History metformin 500 mg tablet 500 mg PO BID 09/19/22 09/19/22 History Patient hx anesthesia problems: none Family hx anesthesia problems: none Results Review: All pre-operative results and documents have been reviewed as part of the pre-operative evaluation. [facility] Past Medical History Medical History Anxiety Asthma Bulging disc Chronic bilateral low back pain with bilateral sciatica Compression fracture of T3 vertebra Depression Depressive disorder Diabetes Fibromyalgia affecting multiple sites Fracture of scaphoid bone of left wrist (01/19/19) Generalized anxiety disorder GERD without esophagitis History of COVID-19 (~02/2020) HTN (hypertension) Hyperlipidemia Left radial head fracture (01/19/19) Lumbar back pain with radiculopathy affecting lower extremity Multiple joint pain Osteopenia Personal history of arthritis Prediabetes Skin abscess Surgical History Surgical History History of (~1987) History of cholecystectomy (~2004) History of medial meniscus repair of left knee (~2007) History of oophorectomy (~1999) Family History Family History Mother Hypertension Family history of osteoarthritis Family history of thyroid disease Family history of rheumatoid arthritis Father Hypertension Family history of diabetes mellitus in first degree relative Family history of renal failure Family history of heart disease in male family member before age 55 Family history of congestive heart failure Family history of coronary artery disease Diabetes mellitus Family history of osteoporosis Asthma Family history of osteoarthritis Family history of kidney disease Sibling Family history of kidney disease Asthma Family history of diabetes mellitus in first degree relative Family history of renal failure Grandparent Depression Family history of arthritis Family history of malignant neoplasm Family history of chronic obstructive pulmonary disease Family history of congestive heart failure Other Family history of cardiovascular disease Social History Social History Smoking status: Never smoker Alcohol intake: current Alcohol use details: rarely Substance use: never Substance us
[2022-09-30 11:17] VITALS: BP 118/75; PULSE 78; RESP 18; TEMP 36.5; O2SAT 98
[2022-09-30 11:26] LABS: Glucose Point of Care 95 mg/dl (65-105)
--- NOTE | 2022-09-30 12:01 | PM.HPGS ---
History of Present Illness History of Present Illness Consent: Risks, benefits, and alternatives have been discussed and questions answered. Patient agrees to proceed with procedure. Chief complaint: Esophageal Stricture Narrative: Michelle Schmitt is a 51 year old female with dysphagia. Two months ago she was found to have a high-grade stricture of the distal esophagus. Review of Systems Review of Systems: All systems reviewed & are unremarkable except as noted in HPI and below PMFSH Past Medical History Medical History Anxiety Asthma Bulging disc Chronic bilateral low back pain with bilateral sciatica Compression fracture of T3 vertebra Depression Depressive disorder Diabetes Fibromyalgia affecting multiple sites Fracture of scaphoid bone of left wrist (01/19/19) Generalized anxiety disorder GERD without esophagitis History of COVID-19 (~02/2020) HTN (hypertension) Hyperlipidemia Left radial head fracture (01/19/19) Lumbar back pain with radiculopathy affecting lower extremity Multiple joint pain Osteopenia Personal history of arthritis Prediabetes Skin abscess Surgical History Surgical History History of (~1987) History of cholecystectomy (~2004) History of medial meniscus repair of left knee (~2007) History of oophorectomy (~1999) Family History Family History Mother Hypertension Family history of osteoarthritis Family history of thyroid disease Family history of rheumatoid arthritis Father Hypertension Family history of diabetes mellitus in first degree relative Family history of renal failure Family history of heart disease in male family member before age 55 Family history of congestive heart failure Family history of coronary artery disease Diabetes mellitus Family history of osteoporosis Asthma Family history of osteoarthritis Family history of kidney disease Sibling Family history of kidney disease Asthma Family history of diabetes mellitus in first degree relative Family history of renal failure Grandparent Depression Family history of arthritis Family history of malignant neoplasm Family history of chronic obstructive pulmonary disease Family history of congestive heart failure Other Family history of cardiovascular disease Social History Social History Smoking status: Never smoker Alcohol intake: current Alcohol use details: rarely Substance use: never Substance use type: does not use Lack of Transportation: No Lack of Food: Never True Current Housing: I Have Housing Concerned About Future Housing: No Difficulty Paying Gas/Electric Bills: No Difficulty Paying for Meds: No Currently Unemployed: No Education: Associate Degree Difficulty w/ Childcare or Family Care: No Living arrangements: with family Additional living arrangements comments: Occupation/Education: occupation Gender identity (if verbalized by the patient): Female Sexual Orientation (if Verbalized by the Patient): Straight or Heterosexual Spiritual care concerns: No Agree to blood products: Yes Meds Home Medications and Allergies Home Medications Medication Instructions Recorded Confirmed Type loratadine 10 mg tablet (Claritin) 10 mg PO DAILY 01/08/21 09/19/22 History albuterol sulfate 90 mcg/actuation 2 inh inhalation QID PRN shortness 05/05/21 09/19/22 Rx breath activated powder inhaler of breath #1 ea sertraline 100 mg tablet 150 mg PO DAILY #135 tabs 04/18/22 09/19/22 Rx pantoprazole 40 mg tablet,delayed 40 mg PO QAM #30 tabs 06/24/22 09/19/22 Rx release semaglutide 0.25 mg or 0.5 mg (2 0.25 mg (0.2 mL) subcut WEEKLY #3 07/13/22 09/19/22 Rx mg/1.5 mL) subcutaneous pen mL injector (Ozempic) lisinopril 1
[2022-09-30 13:04] VITALS: BP 115/86; PULSE 82; RESP 21; O2SAT 97
[2022-09-30] MEDS: LACTATED RINGERS 1,000 ML 150 ML IV CONT (13:04)
[2022-09-30 13:14] VITALS: BP 125/77; PULSE 66; RESP 21; O2SAT 100
[2022-09-30 13:24] VITALS: BP 115/73; PULSE 60; RESP 16; O2SAT 97
== END 2022-09-30 13:31 | disposition home or self-care (01) ==
PROVIDERS: PCP Family Medicine; Visit Provider Internal Medicine Gastroenterology
PROC: 0DJ08ZZ Inspection of Upper Intestinal Tract, Via Natural or Artificial Opening Endoscopic (ICD-10-PCS; CPT 43235; principal; 2022-09-30 12:30)
DX: K22.2 Esophageal obstruction (principal); K44.9 Diaphragmatic hernia without obstruction or gangrene; J45.909 Unspecified asthma, uncomplicated; E11.9 Type 2 diabetes mellitus without complications; F32.A Depression, unspecified; F41.9 Anxiety disorder, unspecified; M79.7 Fibromyalgia; I10 Essential (primary) hypertension; E78.5 Hyperlipidemia, unspecified; E66.01 Morbid (severe) obesity due to excess calories; Z68.39 Body mass index [BMI] 39.0-39.9, adult; Z79.51 Long term (current) use of inhaled steroids; Z79.899 Other long term (current) drug therapy
CPT/HCPCS: 43249; 82948; C1726; J2405; J2704; J3010; J7120

== ENCOUNTER 2022-11-18 11:48 | Outpatient (CLI) | payer OTHER, SELFPAY ==
[2022-11-18 13:07] LABS: Basophils Absolute Auto 0.1 K/mm3 (0.0-0.1); Basophils Percent Auto 0.8 % (0.2-1.2); Eosinophils Percent Auto 0.5 % (0-4.4); Hematocrit 41.1 % (37.0-47.0); Hemoglobin 12.6 g/dL (12.0-15.0); Immature Granulocyte Absolute 0.02 K/mm3 (0.00-0.031); Immature Granulocyte Percent A 0.3 % (0-0.5); Lymphocytes Absolute Auto 2.53 K/mm3 (0.9-3.2); Lymphocytes Percent Auto 33.8 % (18.3-44.2); Mean Corpuscular HGB Conc 30.7 g/dl (32-36); Mean Corpuscular Hemoglobin 25.4 pg (26-34); Mean Corpuscular Volume 82.7 fl (80-100); Mean Platelet Volume 11.3 fl (7.4-10.4); Monocytes Absolute Auto 0.5 K/mm3 (0.1-0.6); Monocytes Percent Auto 7.2 % (2.6-8.5); Neutrophils Absolute Auto 4.3 K/mm3 (1.3-6.7); Neutrophils Percent Auto 57.4 % (45.5-73.1); Platelet Count Result 299 k/mm3 (150-375); Red Blood Count 4.97 M/mm3 (4.2-5.4); Red Cell Distribution Width 14.4 % (11.5-14.5); White Blood Count 7.5 K/mm3 (4.5-10.0)
[2022-11-18 13:16] LABS: Hemoglobin A1C 5.5 % (<5.7)
[2022-11-18 13:21] LABS: Alanine Aminotransferase 19 U/L (6-35); Albumin Level 4.3 g/dL (3.5-5.1); Alkaline Phosphatase 72 U/L (38-126); Anion Gap 9 mmol/L (8-16); Aspartate Amino Transferase 32 U/L (14-36); Bilirubin,Total 0.5 mg/dL (0.2-1.3); Blood Urea Nitrogen 17 mg/dL (7-17); CRP 1.6 mg/dL (<1.0); Calcium 9.5 mg/dL (8.4-10.2); Carbon Dioxide 31 mmol/L (22-30); Chloride 101 mmol/L (98-107); Cholesterol 188 mg/dL (0-200); Estimated Glomerular Filt Rate > 60; Glucose 99 mg/dL (65-110); HDL Direct 37 mg/dL; Potassium 4.4 mmol/L (3.4-5.0); Sodium 141 mmol/L (137-145); Triglycerides 103 mg/dL (<150)
[2022-11-18 13:30] LABS: LDL Cholesterol Direct 110 mg/dL
[2022-11-18 13:45] LABS: Vitamin D 25 Hydroxy 41.5 ng/mL
[2022-11-18 13:49] LABS: Thyroid Stimulating Hormone 0.295 uIU/mL (0.465-4.680)
[2022-11-18 13:55] LABS: Erythrocyte Sedimentation Rate 17 mm/hr (0-20)
== END 2022-11-18 11:49 | disposition home or self-care (01) ==
LOC: ANHGOSHLAB 11:48
PROVIDERS: PCP Family Medicine; Visit Provider Nurse Practitioner Family
DX: Z00.00 Encounter for general adult medical examination without abnormal findings (principal); Z13.220 Encounter for screening for lipoid disorders; Z13.29 Encounter for screening for other suspected endocrine disorder; Z13.21 Encounter for screening for nutritional disorder; M25.50 Pain in unspecified joint; Z13.1 Encounter for screening for diabetes mellitus; I10 Essential (primary) hypertension; Z13.89 Encounter for screening for other disorder
CPT/HCPCS: 36415; 80053; 80061; 82306; 83036; 84443; 85025; 85652; 86140

== ENCOUNTER 2023-02-03 21:31 | Emergency (ER) | payer OTHER, SELFPAY ==
--- NOTE | ~2023-02-03 | XR_ITS ---
XR hand LT min 3V DATE: 02/03/2023 22:35 INDICATION: Fifth digit pain TECHNIQUE: 3 views COMPARISON: None FINDINGS: There is a transverse metaphyseal fracture of the proximal phalanx of the fifth digit with approximately 40 degrees apex anterior angulation, minimal displacement. No other fracture or dislocation. No periosteal reaction or bone destruction. IMPRESSION: Metaphyseal fracture of proximal phalanx of fifth digit Reviewed, dictated and finalized at [facility]. [employer]
--- NOTE | ~2023-02-03 | CT_ITS ---
EXAMINATION: CT brain wo con DATE: 02/03/2023 22:25 INDICATION: Fall. TECHNIQUE: Computed tomography (CT) of the head was performed without intravenous contrast. The mA wa s adjusted according to patient size. Iterative reconstruction technique was employed. Exam dose: 68 1.00 mGy-cm total exam DLP. COMPARISON: 01/22/2022 CT brain FINDINGS: Bilateral vertebral artery, basilar artery and bilateral carotid siphon internal carotid ar celestino calcifications. No intracranial mass lesion or hemorrhage or cerebrovascular accident, midline shift or mass effect i s detected. No subdural or epidural hematoma. There is mild left frontal cephalohematoma. No skull fracture. No coup or contrecoup intracranial inj ury is identified. The paranasal sinuses and mastoid air cells are normally developed and aerated bilaterally. IMPRESSION: Left frontal cephalohematoma; no skull fracture or acute intracranial finding Cerebral atherosclerosis Reviewed, dictated and finalized at [facility]. Reviewed, dictated and finalized at location [facility]. 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
--- NOTE | ~2023-02-03 | CT_ITS ---
EXAMINATION: CT facial & cervical spine wo DATE: 02/03/2023 22:27 INDICATION: Fall. TECHNIQUE: Computed tomography (CT) of the facial bones and maxillofacial region and cervical spine w as performed without intravenous contrast. Automated exposure control and iterative reconstruction te chnique were employed. Exam dose: 571.28 mGy-cm total exam DLP. COMPARISON: 01/22/2022 CT cervical spine FINDINGS: Mild left frontal cephalohematoma is noted. No underlying skull fracture is detected. The frontal, ethmoid, maxillary and sphenoid sinuses are well-developed and aerated as are the includ ed mastoid air cells. No facial fracture. The nasal bones, anterior maxillary spine, zygomatic arches, orbital rims and wal ls as well as the mandible and temporal mandibular joints are intact. Chronic T3 compression fracture, stable since 01/22/2022. No cervical spine fracture or dislocation, locked facet or prevertebral soft tissue swelling. There is degenerative change at the apophyseal joints of the cervical spine. Cervical interspaces are relatively well preserved with mild anterior spurring at C5-6. IMPRESSION: Mild cervical spondylosis; no fracture or dislocation of the cervical spine Chronic T3 compression fracture No facial fracture Mild frontal cephalhematoma Reviewed, dictated and finalized at [facility]. Reviewed, dictated and finalized at location [facility]. 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
[2023-02-03 21:32] VITALS: BP 152/92; PULSE 73; RESP 20; TEMP 36.4; O2SAT 100
--- NOTE | 2023-02-03 22:21 | PC.NURSE ---
Patient taken to CT via w/c at this time.
[2023-02-03] MEDS: HYDROcodone/acetaminophen (*CRX) 5-325 MG TABLET 1 TAB PO (22:38)
--- NOTE | 2023-02-03 23:10 | ED.GENADULT ---
HPI - General Adult General Chief complaint: Fall Stated complaint: Fall, hit head Time Seen by Provider: 02/03/23 22:02 History of Present Illness HPI narrative: This is a 52-year-old female presenting ED after fall. The patient is was walking downhill when she tripped and fell forward. She caught herself on her left hand and then struck her face on the ground. Denies loss of consciousness, use of blood thinners, altered mental status, focal neurologic deficits or persistent vomiting. Tetanus is up-to-date. She is now complaining of left pinky pain and facial pain Related Data Home Medications Medication Instructions Recorded Confirmed loratadine 10 mg tablet (Claritin) 10 mg PO DAILY 01/08/21 11/18/22 meloxicam 15 mg tablet 15 mg PO DAILY 09/19/22 11/18/22 metformin 500 mg tablet 500 mg PO DAILY 11/18/22 11/18/22 Allergies Allergy/AdvReac Type Severity Reaction Status Date / Time celecoxib Allergy Unknown Itching Verified 02/03/23 21:43 codeine Allergy Unknown Unknown Verified 02/03/23 21:43 Penicillins Allergy Unknown unknown Verified 02/03/23 21:43 [facility] Past Medical History Medical History Anemia Anxiety Asthma Bulging disc Chronic bilateral low back pain with bilateral sciatica Compression fracture of T3 vertebra Constipation Depression Depressive disorder Diabetes Diabetes type 2, controlled Encounter for colorectal cancer screening Fibromyalgia affecting multiple sites Fracture of scaphoid bone of left wrist (01/19/19) Generalized anxiety disorder GERD without esophagitis History of COVID-19 (~02/2020) HTN (hypertension) Hyperlipidemia Left radial head fracture (01/19/19) Lumbar back pain with radiculopathy affecting lower extremity Multiple joint pain Muscle strain of right shoulder region Nail fungus On custodial drug therapy Osteopenia Personal history of arthritis Prediabetes Skin abscess Surgical History Surgical History History of (~1987) History of cholecystectomy (~2004) History of medial meniscus repair of left knee (~2007) History of oophorectomy (~1999) Family History Family History Mother Hypertension Family history of osteoarthritis Family history of thyroid disease Family history of rheumatoid arthritis Father Hypertension Family history of diabetes mellitus in first degree relative Family history of renal failure Family history of heart disease in male family member before age 55 Family history of congestive heart failure Family history of coronary artery disease Diabetes mellitus Family history of osteoporosis Asthma Family history of osteoarthritis Family history of kidney disease Sibling Family history of kidney disease Asthma Family history of diabetes mellitus in first degree relative Family history of renal failure Grandparent Depression Family history of arthritis Family history of malignant neoplasm Family history of chronic obstructive pulmonary disease Family history of congestive heart failure Other Family history of cardiovascular disease Social History Social History Smoking status: Never smoker Alcohol intake: current Alcohol use details: rarely Substance use: never Substance use type: does not use Lack of Transportation: No Lack of Food: Never True Current Housing: I Have Housing Concerned About Future Housing: No Difficulty Paying Gas/Electric Bills: No Difficulty Paying for Meds: No Currently Unemployed: No Education: Associate Degree Difficulty w/ Childcare or Family Care: No Living arrangements: with family Additional living arrangements comments: Occupation/Education: occupation Gender identity (if verbalized by the patient): Female Sexual Orientation (if
--- NOTE | 2023-02-03 23:18 | PC.NURSE ---
Metal splint applied to left pinky finger per THAIS Biggs.
== END 2023-02-03 23:41 | disposition home or self-care (01) ==
PROVIDERS: Emergency Provider Emergency Medicine; PCP Family Medicine
DX: S62.617A Displaced fracture of proximal phalanx of left little finger, initial encounter for closed fracture (principal); S00.81XA Abrasion of other part of head, initial encounter; S00.31XA Abrasion of nose, initial encounter; J45.909 Unspecified asthma, uncomplicated; I10 Essential (primary) hypertension; E11.9 Type 2 diabetes mellitus without complications; E78.5 Hyperlipidemia, unspecified; K21.9 Gastro-esophageal reflux disease without esophagitis; M79.7 Fibromyalgia; M85.80 Other specified disorders of bone density and structure, unspecified site; M19.90 Unspecified osteoarthritis, unspecified site; Z86.16 Personal history of COVID-19; Z86.2 Personal history of diseases of the blood and blood-forming organs and certain disorders involving the immune mechanism; Z90.49 Acquired absence of other specified parts of digestive tract; Z79.84 Long term (current) use of oral hypoglycemic drugs; Z79.85 Long-term (current) use of injectable non-insulin antidiabetic drugs; W10.2XXA Fall (on)(from) incline, initial encounter; I67.2 Cerebral atherosclerosis; M47.812 Spondylosis without myelopathy or radiculopathy, cervical region; M48.54XD Collapsed vertebra, not elsewhere classified, thoracic region, subsequent encounter for fracture with routine healing
CPT/HCPCS: 29130; 70450; 70486; 72125; 73130; 99284; A9270

== ENCOUNTER → 2023-02-07 14:25 | Outpatient (CLI) | payer OTHER, SELFPAY ==
--- NOTE | ~2023-02-07 | XR_ITS ---
EXAM: XR hand LT min 3V DATE: 02/07/2023 14:43 HISTORY: DISPLACED CLOSED FRACTURE OF L 5TH PROXIMAL PHALANX . COMPARISON: None available. FINDINGS: Overlying splint material obscures osseous detail. Redemonstration of the transverse left f ifth proximal phalange fracture, no healing change, persistent posterior angulation Normal mineraliza tion. No new acute fracture or dislocation. No lytic or blastic lesion. Joint spaces are maintained. No erosion or periosteal change. Soft tissues within normal limits. IMPRESSION: Angulated transverse fracture of the proximal aspect of the left fifth proximal phalange, with persistent posterior angulation. Reviewed, dictated and finalized at location [facility]. REVIEW MANAGER IMPRESSION: Angulated transverse fracture of the proximal aspect of the left fi fth proximal phalange, with persistent posterior angulation.
== END ==
PROVIDERS: PCP Family Medicine; Visit Provider Plastic Surgery
DX: S62.617A Displaced fracture of proximal phalanx of left little finger, initial encounter for closed fracture (principal); X58.XXXA Exposure to other specified factors, initial encounter
CPT/HCPCS: 73130

== ENCOUNTER 2023-02-07 14:42 | Outpatient (CLI) | payer OTHER, SELFPAY ==
[2023-02-07 19:46] LABS: Free T4 Free Thyroxine 1.44 ng/mL (0.78-2.19)
[2023-02-07 20:02] LABS: Thyroid Stimulating Hormone 0.788 uIU/mL (0.465-4.680)
== END 2023-02-07 14:43 | disposition home or self-care (01) ==
LOC: ANHGOSHLAB 14:43
PROVIDERS: PCP Family Medicine; Visit Provider Nurse Practitioner Family
DX: E05.90 Thyrotoxicosis, unspecified without thyrotoxic crisis or storm (principal); R94.6 Abnormal results of thyroid function studies
CPT/HCPCS: 36415; 84439; 84443

== ENCOUNTER → 2023-02-17 13:32 | Outpatient (CLI) | payer OTHER, SELFPAY ==
--- NOTE | ~2023-02-17 | XR_ITS ---
EXAMINATION: XR hand LT min 3V DATE: 02/17/2023 13:49 INDICATION: Displaced fracture of left fifth proximal phalanx. TECHNIQUE: 3 views of left hand were obtained. COMPARISON: Left hand radiographs 02/07/2023 FINDINGS: There is a transverse fracture of base of fifth proximal phalanx. The distal fracture fragm ent demonstrates 30 degrees dorsal angulation. Joint spaces are normal. IMPRESSION: 1. Unchanged transverse fracture of base of fifth proximal phalanx. Reviewed, dictated and finalized at location [facility]. ET LABEL REWINDER
== END ==
PROVIDERS: PCP Family Medicine; Visit Provider Plastic Surgery
DX: S62.617A Displaced fracture of proximal phalanx of left little finger, initial encounter for closed fracture (principal); X58.XXXA Exposure to other specified factors, initial encounter
CPT/HCPCS: 73130

== ENCOUNTER 2023-08-23 15:29 | Emergency (ER) | payer OTHER, SELFPAY ==
--- NOTE | 2023-08-23 15:30 | ED.URI ---
HPI - URI/Sore Throat General Chief Complaint: Upper Respiratory Infection Stated Complaint: SORE THROAT/WHITE SPOTS Time Seen by Provider: 08/23/23 15:30 Source: patient Mode of arrival: ambulatory Limitations: no limitations History of Present Illness HPI Narrative: Patient is a 52-year-old female who presents with 1 week of congestion, sore throat, cough. Patient states she also has severe allergies and has been taking allergy medicine daily. Reports sore throat has worsened today and looked in her throat and saw white patches. Denies any fever, chills, nausea, vomiting, diarrhea. Related Data Home Medications Medication Instructions Recorded Confirmed loratadine 10 mg tablet (Claritin) 10 mg PO DAILY 01/08/21 08/23/23 metformin 500 mg tablet 500 mg PO DAILY 11/18/22 08/23/23 Allergies Allergy/AdvReac Type Severity Reaction Status Date / Time Penicillins Allergy Intermediate Hives Verified 08/23/23 15:40 celecoxib Allergy Mild Itching Verified 08/23/23 15:40 codeine AdvReac Mild Nausea Verified 08/23/23 15:40 Review of Systems Review of Systems: All systems reviewed & are unremarkable except as noted in HPI and below Constitutional: Constitutional: Denies body ache(s), Denies chills, Denies fatigue, Denies fever(s), Denies headache(s), Denies malaise and Denies weakness Eyes: Eyes: Denies blurry vision, Denies itchy eyes and Denies loss of vision ENT: Denies otalgia, Denies headache(s), Reports nasal congestion, Denies sinus pain and Reports sore throat Cardiovascular: Cardiovascular: Denies chest pain, Denies irregular heart rhythm and Denies dyspnea Respiratory: Respiratory: Reports cough and Denies dyspnea Gastrointestinal: Gastrointestinal: Denies abdominal pain, Denies diarrhea, Denies nausea and Denies vomiting Musculoskeletal: Musculoskeletal: Denies back pain, Denies myalgias and Denies arthralgias Integumentary/Breasts: Skin/Breast: Denies pruritus and Denies rash Neurologic: Denies headache(s), Denies loss of vision and Denies weakness Psychiatric: Psychiatric: Reports no additional psychiatric complaints Endocrine: Endocrine: Denies fatigue Allergic/Immunologic: Allergic/Immunologic: Denies itchy eyes PMFSH Past Medical History Medical History Anemia Anxiety Asthma Bulging disc Chronic bilateral low back pain with bilateral sciatica Compression fracture of T3 vertebra Constipation Depression Depressive disorder Diabetes Diabetes type 2, controlled Encounter for colorectal cancer screening Fibromyalgia affecting multiple sites Fracture of scaphoid bone of left wrist (01/19/19) Generalized anxiety disorder GERD without esophagitis History of COVID-19 (~02/2020) HTN (hypertension) Hyperlipidemia Left radial head fracture (01/19/19) Lumbar back pain with radiculopathy affecting lower extremity Multiple joint pain Muscle strain of right shoulder region Nail fungus On correction drug therapy Osteopenia Personal history of arthritis Prediabetes Skin abscess Surgical History Surgical History History of (~1987) History of cholecystectomy (~2004) History of medial meniscus repair of left knee (~2007) History of oophorectomy (~1999) Family History Family History Mother Hypertension Family history of osteoarthritis Family history of thyroid disease Family history of rheumatoid arthritis Father Hypertension Family history of diabetes mellitus in first degree relative Family history of renal failure Family history of heart disease in male family member before age 55 Family history of congestive heart failure Family history of coronary artery disease Diabetes mellitus Family history of osteoporosis Asthma Family history of osteoarthritis Family history of kidney disease Sibling Family history
[2023-08-23 15:48] VITALS: BP 110/73; PULSE 71; RESP 14; TEMP 36.8; O2SAT 98
== END 2023-08-23 16:15 | disposition home or self-care (01) ==
PROVIDERS: Emergency Provider Nurse Practitioner Family; PCP Family Medicine
DX: H66.002 Acute suppurative otitis media without spontaneous rupture of ear drum, left ear (principal); E11.9 Type 2 diabetes mellitus without complications; Z79.84 Long term (current) use of oral hypoglycemic drugs; M79.7 Fibromyalgia; K21.9 Gastro-esophageal reflux disease without esophagitis; I10 Essential (primary) hypertension; E78.5 Hyperlipidemia, unspecified; M85.80 Other specified disorders of bone density and structure, unspecified site
CPT/HCPCS: 87081; 87880; 99213; G0463

== ENCOUNTER 2023-11-20 14:45 | Outpatient (CLI) | payer OTHER, SELFPAY ==
[2023-11-20 18:51] LABS: Basophils Absolute Auto 0.1 K/mm3 (0.0-0.1); Basophils Percent Auto 0.9 % (0.2-1.2); Eosinophils Absolute Auto 0.1 K/mm3 (0-0.3); Eosinophils Percent Auto 1.4 % (0-4.4); Hematocrit 40.6 % (37.0-47.0); Hemoglobin 13.2 g/dL (12.0-15.0); Immature Granulocyte Absolute 0.01 K/mm3 (0.00-0.031); Immature Granulocyte Percent A 0.1 % (0-0.5); Lymphocytes Absolute Auto 2.85 K/mm3 (0.9-3.2); Lymphocytes Percent Auto 41.3 % (18.3-44.2); Mean Corpuscular HGB Conc 32.5 g/dl (32-36); Mean Corpuscular Hemoglobin 28.6 pg (26-34); Mean Corpuscular Volume 87.9 fl (80-100); Mean Platelet Volume 11.2 fl (7.4-10.4); Monocytes Absolute Auto 0.5 K/mm3 (0.1-0.6); Monocytes Percent Auto 7.7 % (2.6-8.5); Neutrophils Absolute Auto 3.4 K/mm3 (1.3-6.7); Neutrophils Percent Auto 48.6 % (45.5-73.1); Platelet Count Result 243 k/mm3 (150-375); Red Blood Count 4.62 M/mm3 (4.2-5.4); Red Cell Distribution Width 13.2 % (11.5-14.5); White Blood Count 6.9 K/mm3 (4.5-10.0)
[2023-11-20 19:37] LABS: MALB Creatinine Ratio 4.2 mg/g (0-30); Microalbumin Urine Random 6.6 mg/L (0-16.7)
[2023-11-20 20:25] LABS: Alanine Aminotransferase 14 U/L (6-35); Albumin Level 4.2 g/dL (3.5-5.1); Alkaline Phosphatase 63 U/L (38-126); Anion Gap 5 mmol/L (4-12); Aspartate Amino Transferase 44 U/L (14-36); Bilirubin,Total 0.4 mg/dL (0.2-1.3); Blood Urea Nitrogen 20 mg/dL (7-17); Calcium 9.1 mg/dL (8.4-10.2); Carbon Dioxide 32 mmol/L (22-30); Chloride 97 mmol/L (98-107); Cholesterol 201 mg/dL (0-200); Estimated Glomerular Filt Rate > 60; Glucose 90 mg/dL (65-110); HDL Direct 52 mg/dL; Potassium 3.7 mmol/L (3.4-5.0); Sodium 134 mmol/L (137-145); Triglycerides 168 mg/dL (<150)
[2023-11-20 20:30] LABS: LDL Cholesterol Direct 107 mg/dL
[2023-11-20 20:32] LABS: Vitamin D 25 Hydroxy 23.8 ng/mL
[2023-11-20 20:48] LABS: Thyroid Stimulating Hormone 0.764 uIU/mL (0.465-4.680)
[2023-11-21 00:57] LABS: Hemoglobin A1C 5.3 % (<5.7)
== END 2023-11-20 14:46 | disposition home or self-care (01) ==
LOC: ANHGOSHLAB 14:46
PROVIDERS: PCP Family Medicine; Visit Provider Nurse Practitioner Family
DX: E11.9 Type 2 diabetes mellitus without complications (principal); E78.5 Hyperlipidemia, unspecified; F41.1 Generalized anxiety disorder; I10 Essential (primary) hypertension; M79.7 Fibromyalgia; E55.9 Vitamin D deficiency, unspecified; Z00.00 Encounter for general adult medical examination without abnormal findings; E53.8 Deficiency of other specified B group vitamins; Z13.29 Encounter for screening for other suspected endocrine disorder
CPT/HCPCS: 36415; 80053; 80061; 82043; 82306; 82607; 83036; 84443; 85025

== ENCOUNTER 2023-12-08 11:00 | Outpatient (CLI) | payer OTHER, SELFPAY ==
--- NOTE | ~2023-12-08 | MMUS_ITS ---
EXAMINATION: MM diagnostic randy BI w vero, US breast BI limited HISTORY: Right nipple lobe. Clear discharge. TECHNIQUE: Additional 3-D tomosynthesis images of the breasts were performed and synthetic 2-D images were generated. CAD analysis was submitted and interpreted. High resolution Limited right breast ult rasound was performed. COMPARISON: Comparison to multiple prior studies sequentially, with oldest reviewed study dated 02/12. BREAST PARENCHYMAL COMPOSITION: Not dense: There are scattered areas of fibroglandular density. FINDINGS: MAMMOGRAPHIC FINDINGS: There is a benign-appearing partially calcified nodule in the upper central aspect of the left breast . There is no mammographic evidence for malignancy in the left breast. There is a stable round partia lly calcified mass in the lower inner quadrant of the right breast posteriorly and inferiorly. There is a small periareolar mass in the right breast. ULTRASOUND: Limited right breast ultrasound: At 5:00, 11 cm from the nipple there is an oval parallel oriented he terogeneous 1.5 cm mass with internal vascularity and posterior acoustic enhancement, corresponding t o the mammographic abnormality. In the periareolar location of the right breast there is a 4 mm intra mammary lymph node. There is a elongated tubular structure in this location as well, likely a dilated duct. IMPRESSION: 1. Probable benign findings of the right breast. 2. Recommend 6 month follow-up digital diagnostic right mammogram and Limited right breast ultrasound . BI-RADS category 3, probably benign findings. Reviewed, dictated and finalized at location B. IMPRESSION: 1. Probable benign findings of the right breast. 2. Recommend 6 month follow-up digital diagnostic right mammogram and Limited r ight breast ultrasound. BI-RADS category 3, probably benign findings.
== END 2023-12-08 11:01 | disposition home or self-care (01) ==
PROVIDERS: PCP Family Medicine; Visit Provider Nurse Practitioner Family
DX: N63.0 Unspecified lump in unspecified breast (principal); R92.8 Other abnormal and inconclusive findings on diagnostic imaging of breast
CPT/HCPCS: 76642; 77062; 77066; G0279

== ENCOUNTER 2025-01-22 16:43 | Emergency (ER) | payer OTHER, SELFPAY ==
--- OUTSIDE RECORDS SUMMARY | 2010-01-12 07:15 | XMS_ITS | Continuity of Care Document ---
Author Organization [facility] Address [address] [place] [address] Phone Care Team Providers Care Linen Sorter Name Role Phone Shelby King Unavailable Unavailable Procedures Procedure Date Office/outpatient Visit, Est Advance Directives Directive Yes / No Effective Date File Name No Information Encounters Encounter Description Practice Location Reason(s) For Visit Diagnoses Date Provider Providers Copied on Encounter Office/outpat ient Visit, Est [facility], [address], [place], [place], [id number], [place] tel:[phone] [facility] No Information 2-[address] Christine Ryan. [address] , [address], [place], [address], [place]. tel:[phone] Family History Family Member Type Diagnosis Age At Onset No Information Payers Payer name Insurance type Covered constitution party ID Authoriza tion(s) No Information Social History Type Description Quantity Date Captured Comments Sex Female Smoking Status No Information Chief Complaint And Reason For Visit No Information Reason For Referral Reason For Referral No Information History Of Present Illness Encounter Date Complaint History Of Prese nt Illness No Information Functional Status Date Functional Assessmen t No Information Instructions Date Instruction Additional Infor mation No Information Assessments Type Assessment Date No Information Patient Care Teams Name Effective Dates (start - stop) Status Members No Information
--- OUTSIDE RECORDS SUMMARY | 2012-11-12 23:00 | XMS_ITS | Encounter Summary ---
Author Organization [facility] Healthcare Address [address] [place] [address] Care Team Providers Care Computer Forensics Investigator Name Role Phone Unavailable Primary Care Provider Unavailabl e Reason for Visit * Diagnostic Imaging (Routine) - Pending Review Specialty Diagnoses / Procedures Referred By Contac t Referred To Contact Procedures Breast Imaging Screening Outside Reference Anastasia Aguilar, BREN [address] [address] Phone: tel: fax: Referral ID Status Reason Start Date Expiration Date V isits Requested Visits Authorized [id number] Pending Review 02/16/2024 03/17/2025 1 1 Encounter Details Date Type Department Care Team (Late st Contact Info) Description 2012 Hospital Encounter [facility] [address] [place] [phone] Social History Tobacco Use Types Packs/Day Years Used Date Smoking Tobacco: Never Smokeless Tobacco: Never AUDIT-C Answer Date Recorded Q1: How often do you have a drink containing alcohol? Never 05/24/2024 Q2: How many drinks containi ng alcohol do you have on a typical day when you are drinking? Patient does not drink Q3: How often do you have si x or more drinks on one occasion? Never 05/24/2024 Personal Safety Answer Date Recorded Have you ever been in or are you currently in a harmful physical or emotional relationship or is someone making you feel afraid or unsafe? 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 Gender Identity Not on file Sexual Orientation Not on file documented as of this encounter Functional Status * Difference in Last Two Sohail Scores Answer Date of Assessment Author 3 05/24/2024 4:50 PM Venu Gomez RN * Question Answer Date of Assessment Author MAP (mmHg) 98 05/24/2024 5:40 PM Megan Richardson RN * Ngo Fall Risk Question Answer Date of Assessment Author History of Falling 0 05/24/2024 5:13 PM Megan Gomez RN Secondary Diagnosis 0 05/24/2024 5:13 PM Megan Bagley RN Ambulatory Aids 0 05/24/2024 5:13 PM ZABRINAT Megan Hay RN Intravenous Therapy/Heparin/Saline Lock 20 05/24/2024 5:13 PM Venu Gomez RN Gait/Transferring 0 05/24/2024 5:13 PM Megan Gomez RN Mental Status 0 05/24/2024 5:13 PM Megan Huffman RN Ngo Fall Risk Score (Score >= 45 places fall precaution order) 20 05/24/2024 5:13 PM Megan Gomez RN Prior Fall Event (Autopopulated from EMR) None found 05/24/2024 5:13 PM Parisa Gomez RN * Sohail Scale Question Answer Date of Assessment Author Sensory Perceptions 3 05/24/2024 4:50 PM Megan Bagley RN Moisture 4 05/24/2024 4:50 PM Megan Richardson RN Activity 4 05/24/2024 4:50 PM Megan Richardson RN Mobility 3 05/24/2024 4:50 PM Megan Richardson RN Nutrition 3 05/24/2024 4:50 PM Megan Richardson RN Friction and Shear 3 05/24/2024 4:50 PM Megan Gomez RN Sohail Scale Score 20 05/24/2024 4:50 PM Megan Gomez RN * BP Location Answer Date of Assessment Author Right arm 06/06/2024 2:05 PM Toshia Hanson RMA * Fall Risk Interventions Question Answer Date of Assessment Author All Low Fall Interventions Applied Yes 05/24/2024 5:13 PM Megan Gomez, ANTHONY * Pressure Injury Prevention Question Answer Date of Assessment Author Pressure Ulcer Prevention Interventions Keep skin clean and dry (Sensory Perception/Moisture ) 05/24/2024 5:40 PM Megan Gomez RN * AUDIT-C Score Answer Date of Assessment Author 0 05/24/2024 8:04 AM Ashleigh Clayton RN * Alcohol Use Question Answer Date of Assessment Author Q1: How often do you have a drink containing alcohol? Never 05/24/2024 8:04 AM Ashleigh Clayton RN Q2: How many drinks containing alcohol do you have on a typical day when you are drinking? Patient does not drink 05/24/2024 8:04 AM Ashleigh Clayton RN Q3: How often do you have six or more drinks on one occasion? Never 05/24/2024 8:04 AM Ashleigh Clayton RN * Integumentary Question Answer Date of Assessment Author Integumentary (WDL) WDL 05/24/2024 5:40 PM Megan Bagley RN * Sohail Scale Question Answer Date of Assessment Author Sohail Scale Used Sohail 05/24/2024 4:50 PM Megan Gomez RN * BP Location Answer Date of Assessment Author Right arm 06/06/2024 2:05 PM Toshia Hanson RMA * Fall Risk Interventions Question Answer Date of Assessment Author All Low Fall Interventions Applied Yes 05/24/2024 5:13 PM Megan Gomez RN * ADL Screening Question Answer Date of Assessment Author Hearing - Right Ear Functional 05/07/2024 11:43 AM Jaleesa uW RN Hearing - Left Ear Functional 05/07/2024 11:43 AM Jaleesa Rendon ANTHONY * Assistive Devices Question Answer Date of Assessment Author Assistive Devices/DME Eyeglasses;Contacts 05/07/2024 1 1:43 AM GUM MACHINE OPERATOR Jaleesa Singleton RN documented as of this encounter Mental Status * Question Answer Entry Date Author Level of Consciousness Alert;Awake 5:40 PM CDT Megan Solomon RN Orientation Oriented X4 (person, place, time, situation) 05/24/2024 5:40 PM CDT Megan Solomon RN Neuro (WDL) X 05/24/2024 4:50 PM CDT Megan Solomon RN documented in this encounter Plan of Treatment Not on file documented as of this encounter Procedures Procedure Name Priority Date/Time Associated Diagnosis Comments BREAST IMAGING MG SCREENING OUTSIDE REFERENCE Routine 2012 12:00 AM CDT documented in this encounter Results * Breast Imaging Screening Outside Reference (2012 12:00 AM CDT) Impressions [facility] - 02/16/2024 4:27 PM GUM MACHINE OPERATOR These images are for Reference purposes only and have not been reviewed by [facility]. There will be no report generated by a [facility] Radiologist. Narrative [facility] - 02/16/2024 4:27 PM GUM MACHINE OPERATOR EXAMINATION: Images For Reference Purposes Only us Anastasia Aguilar STATISTICAL METHODS TEACHER IMG MAMMO PROCEDURES Fi nal Result [facility] documented in this encounter Visit Diagnoses Not on filedocumented in this encounter Additional Health Concerns Infection Onset Date Last Indicated Resolved Time COVID: Suspected 07/13/2019 07/13/2019 07/15/2019 3:15 PM CDT Respiratory Infection (BEN), contact + droplet Comment:Automatically added due to negative COVID-19 result. 07/15/2019 07/15/2019 07/29/2019 3:0 5 AM CDT documented as of this encounter
--- OUTSIDE RECORDS SUMMARY | 2012-11-26 23:00 | XMS_ITS | Encounter Summary ---
Author Organization [facility] Healthcare Address [address] [place] [address] Care Team Providers Care Primary School Principal Name Role Phone Unavailable Primary Care Provider Unavailabl e Reason for Visit * Diagnostic Imaging (Routine) - Pending Review Specialty Diagnoses / Procedures Referred By Contac t Referred To Contact Procedures Breast Imaging Diagnostic Outside Reference Anastasia Aguilar, BREN [address] [address] Phone: tel: fax: Referral ID Status Reason Start Date Expiration Date V isits Requested Visits Authorized [id number] Pending Review 02/16/2024 03/17/2025 1 1 Encounter Details Date Type Department Care Team (Late st Contact Info) Description 11/27/2012 Hospital Encounter [facility] [address] [place] [phone] Social History Tobacco Use Types Packs/Day Years [...] on file 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 Gender Identity Not on file Sexual Orientation [...] RN Secondary Diagnosis 0 05/24/2024 5:13 PM CD Megan Wheeler RN Ambulatory Aids 0 05/24/2024 5:13 PM CDT Megan Hay RN Intravenous Therapy/Heparin/Saline Lock 20 05/24/2024 5:13 PM Venu Gomez RN Gait/Transferring 0 05/24/2024 5:13 PM Megan Gomez RN Mental Status 0 05/24/2024 5:13 PM CDMegan Pacheco RN Ngo Fall Risk Score (Score >= 45 places fall precaution order) 20 05/24/2024 5:13 PM Megan Gomez RN Prior Fall Event (Autopopulated from EMR) None found 05/24/2024 5:13 PM Parisa Gomez RN * Sohail Scale Question Answer Date of Assessment Author Sensory Perceptions 3 05/24/2024 4:50 PM Megan Espinosa RN Moisture 4 05/24/2024 4:50 PM Megan [...] Right Ear Functional 05/07/2024 11:43 AM Jaleesa Wu RN Hearing - Left Ear Functional 05/07/2024 11:43 AM Jaleesa Rendon ANTHONY * Assistive Devices Question Answer Date of Assessment Author Assistive Devices/DME Eyeglasses;Contacts 05/07/2024 1 1:43 AM DEPUTY PROSECUTING ATTORNEY Jaleesa Singleton RN documented as of this [...] Date/Time Associated Diagnosis Comments BREAST IMAGING MG DIAGNOSTIC OUTSIDE REFERENCE Routine 11/27/2012 12:00 AM CDT documented in this encounter Results * Breast Imaging Diagnostic Outside Reference (11/27/2012 12:00 AM CDT) Impressions [facility] - 02/16/2024 4:27 PM DEPUTY PROSECUTING ATTORNEY These images are for Reference purposes only and have not been reviewed by [facility]. There will be no report generated by a [facility] Radiologist. Narrative [facility] - 02/16/2024 4:27 PM DEPUTY PROSECUTING ATTORNEY EXAMINATION: Images For Reference Purposes Only us Anastasia Aguilar PIPE ORGAN MECHANIC IMG MAMMO PROCEDURES Fi nal Result [facility] [...]
--- OUTSIDE RECORDS SUMMARY | 2015-03-11 | XMS_ITS | Encounter Summary ---
Author Organization [facility] Healthcare Address [address] [place] [address] Care Team Providers Care Business Law Teacher Name Role Phone Unavailable Primary Care Provider Unavailabl e Reason for Visit * Diagnostic Imaging (Routine) - Pending Review Specialty Diagnoses / Procedures Referred By Contac t Referred To Contact Procedures Breast Imaging Diagnostic Outside Reference Anastasia Aguilar, BREN [address] [address] Phone: tel: fax: Referral ID Status Reason Start Date Expiration Date V isits Requested Visits Authorized [id number] Pending Review 02/16/2024 03/17/2025 1 1 Encounter Details Date Type Department Care Team (Late st Contact Info) Description 03/11/[address] [facility] [address] [place] [phone] Social History Tobacco Use Types Packs/Day Years [...] on file Legal Sex Female 3:45 AM TYPE CASTER Gender Identity Not on file Sexual Orientation [...] Assistive Devices/DME Eyeglasses;Contacts 05/07/2024 1 1:43 AM TYPE CASTER Jaleesa Singleton RN documented as of this [...] BREAST IMAGING MG DIAGNOSTIC OUTSIDE REFERENCE Routine 03/11/2015 12:00 AM TYPE CASTER documented in this encounter Results * Breast Imaging Diagnostic Outside Reference (03/11/2015 12:00 AM TYPE CASTER) Impressions [facility] - 02/16/2024 4:27 PM TYPE CASTER These images are for Reference purposes only and have not been reviewed by [facility]. There will be no report generated by a [facility] Radiologist. Narrative [facility] - 02/16/2024 4:27 PM TYPE CASTER EXAMINATION: Images For Reference Purposes Only us Anastasia Aguilar SCIENTIFIC PROCESS OPERATOR IMG MAMMO PROCEDURES Fi nal Result [facility] [...]
--- OUTSIDE RECORDS SUMMARY | 2015-03-11 00:05 | XMS_ITS | Encounter Summary ---
Author Organization [facility] Healthcare Address [address] [place] [address] Care Team Providers Care Record Changer Tester Name Role Phone Unavailable Primary Care Provider Unavailabl e Reason for Visit * Diagnostic Imaging (Routine) - Pending Review Specialty Diagnoses / Procedures Referred By Contac t Referred To Contact Procedures Breast Imaging US Outside Reference Anastasia Aguilar, BREN [address] [address] Phone: tel: fax: Referral ID Status Reason Start Date Expiration Date V isits Requested Visits Authorized [id number] Pending Review 02/16/2024 03/17/2025 1 1 Encounter Details Date Type Department Care Team (Late st Contact Info) Description 03/11/2015 12:05 AM ORAL SURGEON Hospital Encounter [facility] [address] [place] [id number] Social History Tobacco Use Types Packs/Day Years [...] on file Legal 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 Gender Identity Not on file Sexual Orientation [...] Richardson RN Nutrition 3 05/24/2024 4:50 PM eMgan Richardson RN Friction and Shear 3 05/24/2024 4:50 PM Meagn Gomez RN Sohail Scale Score 20 05/24/2024 4:50 PM Megan Gomez RN * BP Location Answer Date of Assessment Author Right arm 06/06/2024 2:05 PM CDT Toshia Smart RMA * Fall Risk Interventions Question Answer [...] Assessment Author Right arm 06/06/2024 2:05 PM ZABRINAT Toshia Smart RMA * Fall Risk Interventions Question Answer Date of Assessment Author All Low Fall Interventions Applied Yes 05/24/2024 5:13 PM Megan Gomez, ANTHONY * ADL Screening Question Answer Date of Assessment Author Hearing - Right Ear Functional 05/07/2024 11:43 AM Jaleesa Wu RN Hearing - Left Ear Functional 05/07/2024 11:43 AM CS T Jaleesa Singleton RN * Assistive Devices Question Answer Date of Assessment Author Assistive Devices/DME Eyeglasses;Contacts 05/07/2024 1 1:43 AM ORAL SURGEON Jaleesa Singleton RN documented as of this encounter Mental Status * Question Answer Entry Date Author Level of Consciousness Alert;Awake 5:40 PM CDT Megan Solomon RN Orientation Oriented X4 (person, place, time, situation) 05/24/2024 5:40 PM Megan Gomez RN Neuro (WDL) X 05/24/2024 4:50 PM CDT Megan Solomon RN documented in this encounter Plan of Treatment Not on file documented as of this encounter Procedures Procedure Name Priority Date/Time Associated Diagnosis Comments BREAST IMAGING US OUTSIDE REFERENCE Routine 03/11/2015 12:05 AM ORAL SURGEON documented in this encounter Results * Breast Imaging US Outside Reference (03/11/2015 12:05 AM ORAL SURGEON) Impressions [facility] - 02/16/2024 4:27 PM ORAL SURGEON These images are for Reference purposes only and have not been reviewed by [facility]. There will be no report generated by a [facility] Radiologist. Narrative [facility] - 02/16/2024 4:27 PM ORAL SURGEON EXAMINATION: Images For Reference Purposes Only us Anastasia Aguilar SALVAGE MECHANIC IMG MAMMO PROCEDURES Fi nal Result [...]
--- NOTE | ~2025-01-22 | XR_ITS ---
PROCEDURE(S): X-ray pelvis one to 2 views INDICATION(S): Injury and pain with right-sided sciatica COMPARISON(S): Studies dating back to 2021 TECHNIQUE: 1 radiographic images were submitted for interpretation. FINDINGS: Bones: There are no fractures seen. There are no destructive lesions or other lesions identified. Joints: There are no dislocations identified. There is no evidence of erosive arthropathy. Significant degenerative change of the small part of the lumbar spine which is seen. Multiple calcific densities in the pelvis are thought to represent phleboliths. IMPRESSION: No acute abnormalities are seen. Reviewed, dictated and finalized at location A. SELING DEPARTMENT CHAIR
[2025-01-22 16:46] VITALS: BP 128/76; PULSE 74; RESP 14; TEMP 36.6; O2SAT 99
--- OUTSIDE RECORDS SUMMARY | 2025-01-22 16:46 | XMS_ITS | Clinical Summary ---
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 Developer Name Role Phone Unavailable Primary Care Provider Unavailabl e Social History Tobacco Use Types Packs/Day Years Used Date Smoking Tobacco: Never Assessed Comments Unknown Sex and Gender Information Value Date Recorded Sex Assigned at Not on file Legal Sex Female 10:30 AM CDT Gender Identity Not on file Sexual Orientation Not on file Plan of Treatment Health Maintenance Due Date Last Done Comments DTAP/TDAP/TD VACCINES (1 - Tdap) 11/14/1987 HEPATITIS B VACCINES (1 of 3 - 19+ 3-dose series) 05/1987 HPV/Cotest (21-29) 1989 CERVICAL CANCER SCREENING 1998 HPV/Cotest (30-65) 1998 PAP SMEAR 1998 BREAST CANCER SCREENING 2008 COLORECTAL SCREENING 2013 Colorectal Cancer Screening 2013 FIT-DNA Q 3 years 2013 FIT/FOBT Q 1 year 2013 Flex Sig/CT Colonography Q 5 years 2013 ZOSTER VACCINE (1 of 2) 2018 INFLUENZA VACCINE (#1) 2024
--- OUTSIDE RECORDS SUMMARY | 2025-01-22 16:46 | XMS_ITS | Encounter Summary ---
Author Organization [facility] Address [address] [place] [address] Phone Care Team Providers Care Sales Representative Adding Machines Name Role Phone Lynne Dimas MD Primary Care Provider Reason for Visit * Reason Onset Date Comments Scheduling Appointments 05/08/2024 Encounter Details Date Type Department Care Team (Late st Contact Info) Description 05/08/2024 Telephone [facility] Medicine Surgery [address] [facility] [address] [place] [address] Maranda Oquendo MD [facility] [address] Scheduling Appointments Social History Tobacco Use Types Packs/Day Years Used Date Smoking Tobacco: Never Smokeless Tobacco: Never AUDIT-C Answer Date Recorded Q1: How often do you have a drink containing alc ohol? Monthly or less 05/07/2024 Q2: How many drinks containi ng alcohol do you have on a typical day when you are drinking? 1 or 2 05/07/2024 Q3: How often do you have si x or more drinks on one occasion? 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
--- OUTSIDE RECORDS SUMMARY | 2025-01-22 16:46 | XMS_ITS | Clinical Summary ---
Author Organization [facility] Virtual Care Address [address] [place] [phone] Phone Care Team Providers Care Customer Service Voice Name Role Phone Lynne Dimas MD Primary Care Provider Allergies Active Allergy Reactions Criticality Noted Date Comments Celecoxib Hives Medium 03/15/2024 Codeine Stomach upset Low 03/15/2024 Penicillins Hives,Rash Medium 03/15/2024 Medications cholecalciferol (VITAMIN D-3) 50,000 unit capsuleIndicati ons:Vitamin D Deficiency Take 1 capsule (50,000 Units total) by mouth once a week Mon/ Mon 4 Active hydroCHLOROthia zide 12.5 mg tabletIndicatio ns:Edema Take 1 tablet (12.5 mg total) by mouth every morning 4 Active losartan (COZAAR) 25 mg tabletIndicatio ns:hypertension Take 1 tablet (25 mg total) by mouth every morning 4 Active meloxicam (MOBIC) 15 mg tabletIndicatio ns:Osteoarthrit is Take 1 tablet (15 mg total) by mouth every morning 4 Active Ozempic 1 mg/dose (4 mg/3 mL) pen injector injectionIndica tions:pre-diabe tic Inject 1 mg under the skin once a week Tuesdays 4 Active traMADoL (ULTRAM) 50 mg tabletIndicatio ns:Pain Take 1 tablet (50 mg total) by mouth every 8 (eight) hours as needed for pain 4 Active sertraline (ZOLOFT) 100 mg tabletIndicatio ns:Anxiety with Depression Take 1 tablet (100 mg total) by mouth every morning Active ALPRAZolam (XANAX) 0.5 mg tablet Take 1 tablet (0.5 mg total) by mouth nightly as needed for anxiety for up to 3 doses 3 tablet 5 Active Additional Information Patient not taking.Informant: Self, Reported on 06/06/2024 lidocaine-prilo serge (EMLA) creamIndication s:Administratio n of Local Anesthesia Apply topically as needed for pain 30 g 5 Active MULTIVITAMIN ORALIndications :supplement Take 1 tablet by mouth every morning Active vitamin B complex (B COMPLEX ORAL)Indication s:supplement Take 1 tablet by mouth every morning Active ascorbic acid/collagen hydr (ASCORBIC ACID-COLLAGEN ORAL)Indication s:supplement Take by mouth every morning Liquid- 1 syringe daily Active BIOTIN ORALIndications :supplement Take by mouth every morning Liquid- 1 syringe daily Active docusate sodium (COLACE) 100 mg capsuleIndicati ons:constipatio n Take 1 capsule (100 mg total) by mouth 2 (two) times a day with a glass of water 8 capsule 5 Active oxyCODONE-aceta minophen (PERCOCET) 5-325 mg per tabletIndicatio ns:Pain Take 1 tablet by mouth every 4 (four) hours as needed for pain for up to 8 doses 8 tablet 5 Active Active Problems Problem Noted Date Diagnosed Date Nipple discharge 05/06/2024 Immunizations Immunization Administration Dates Next Due Influenza, Unspecified 01/29/2014,01/09/2012 Tdap 03/22/2005 Surgical History Surgery Date Site/Laterality Comments BREAST BIOPSY 03/15/2024 Right SECTION 03/13/1987 - 03/12/1988 Left w/oopherectomy OOPHERECTOMY 03/13/1997 - 03/12/1998 Right GALLBLADDER SURGERY 03/13/2011 - 03/12/2012 MENISCUS SURGERY 03/13/2007 - 03/12/2008 Left CYST REMOVAL removed from breast and thigh COLONOSCOPY 03/13/2021 - 03/12/2022 ESOPHAGOGASTRODUODENOSCOPY 03/13/2021 - 03/12/2022 dilation x2 Medical History Medical History Date Comments Asthma Depression Overweight Arthritis Family History Medical History Relation Name Comments Leukemia Maternal Grandfather Lung cancer Mother Colon cancer Paternal Grandfather Anesthesia problems Neg Hx Relation Name Status Comments Maternal Grandfather Mother Paternal Grandfather Social History Tobacco Use Types Packs/Day Years Used Date Smoking Tobacco: Never Smokeless Tobacco: Never Tobacco Cessation:Counseling Given: Not Answered AUDIT-C Answer Date Recorded Q1: How often [...] on file 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 Gender Identity Not on file Sexual Orientation Not on file Last Filed Vital Signs Vital Sign Reading Time Taken Comments Blood Pressure 118/80 06/06/2024 2:05 PM CDT Pulse 60 06/06/2024 2:05 PM CDT Temperature 36.6 C (97.8 F) 06/06/2024 2:05 PM CDT Respiratory Rate 16 06/06/2024 2:05 PM CDT Oxygen Saturation 99% 06/06/2024 2:05 PM CDT Inhaled Oxygen Concentration - - Weight 84.3 kg (185 lb 12.8 oz) 06/06/2024 2:05 PM CDT Height 154.9 cm (5' 1) 06/06/2024 2:05 PM CDT Body Mass Index 35.11 06/06/2024 2:05 PM CDT Plan of Treatment Health Maintenance Due Date Last Done Comments Breast Cancer Screening-Mammogram 1970 Cervical Cancer Screening 1968 Colon Cancer Screening-Colonoscopy 1968 Depression Screening 1968 Hepatitis C Screening 1968 Hepatitis B Screening 1986 Regular Well Visit/Exam 18-64 1986 Pneumococcal vaccine <65 (1 of 2 - PCV) 11/14/1987 DTaP/Tdap/Td Vaccine (2 - Td or Tdap) 03/22/201512/2005 Zoster Vaccine (1 of 2) 2018 Influenza Vaccine (#1) 2024 01/29/2014, 2011 Medical Devices Implanted Type Area Motorcycle Assembler Device Identifier Shelf Expiration Date Model / Serial / Lot Bard Peripheral Vascular Ultraclip Bard 17ga 10cm 2 Trigger Permanent Ultrasound [id number] - [id number] Implanted:Qty: 1 on 03/15/2024 by Dina Martinez MD at [facility] Right: Breast Bard Peripheral Vascular [id number] / / [employer] Marker Tissue Needle Delivery Spiral Capped Seed Radiopaque Chcf Stainless Steel Low Nickel Sentimag [id number] - [id number] Implanted:Qty: 1 on 05/24/2024 at [facility] Right: Breast [employer] [id number] 08/10/2025 [id number] / / [id number] Insurance [email or web address] OPEN [facility]ESS [facility] [id number] [facility] [id number] Care Teams Customer Service Voice Relationship Specialty Start Date End Date Lynne Dimas MD PCP - General Family Medicine 07/13/19
--- NOTE | 2025-01-22 17:14 | ED_ITS ---
HPI - Back Pain/Injury General Chief Complaint: Back Pain/Injury Stated Complaint: Low Back Pain/Hip Pain Time Seen by Provider: 01/22/25 17:00 Source: patient, RN notes reviewed and old records reviewed Mode of arrival: ambulatory Limitations: no limitations History of Present Illness HPI Narrative: 54 year old female who presents to [facility] care with complaints of pain to her lumbar spine region which radiates into her right buttocks hips and around to right hip groin area for the past 2 weeks. Patient works at [employer] and worked a double about 2 weeks and about half way through 2nd shift started havin g pain in lower back. Patient reports no trauma or recent fall with previous history of injury about 4 years ago causing fracture to thoracic spine. Patient reports no problems with her bowel or bladder function, denies any saddle paraesthesia.Patient reports that she has been taking Ibuprofen, Tramadol and Baclofen without resolution of her pain. MD elicited complaint: back pain Pertinent past history: other (former thoracic fracture) Onset (ago): week(s) (2) Pain scale (0-10): 7 Quality: sharp and other (shooting and spasms) Location: lumbar spine (radiates to right buttock hip and to right groin) Treatments prior to arrival: NSAIDS and other (Baclofen and tramadol) Related Data Home Medications ?Medication ?Instructions ?Recorded ?Confirmed ?Last Taken ?Type multivitamin combination no.56 PO 05/15/24 07/25/24 Un known History vitamin B complex PO 05/15/24 07/25/24 Unknown History Allergies Allergy/AdvReac Type Severity Reaction Status Date / Time Penicillins Allergy Intermediate Hives Verified 01/22/25 16:55 celecoxib Allergy Mild Itching Verified 01/22/25 16:55 codeine AdvReac Mild Nausea Verified 01/22/25 16:55 Review of Systems Review of Systems: CONSTITUTIONAL: Denies fever, chills, or sweats. EYES: Denies visual changes, redness, or discharge. ENT: Denies rhinorrhea, congestion, sore throat, or otalgia. CARDIOVASCULAR: Denies chest pain, palpitations, or edema. RESPIRATORY: Denies cough or dyspnea. GASTROINTESTINAL: Denies abdominal pain, nausea, vomiting, or diarrhea. GENITOURINARY: Denies dysuria or hematuria. SKIN: Denies rash or itching. MUSCULOSKELETAL: reports lumbar back pain which radiates to right buttocks hip and into her right groin region , or myalgia. NEUROLOGIC: Denies headache, numbness, or weakness. PSYCHIATRIC: Denies anxiety or depression. All systems reviewed & are unremarkable except as noted in HPI and below PMFSH Past Medical History Medical History Nail fungus Diabetes type 2, controlled (~12/2020) Anemia Osteopenia Encounter for colorectal cancer screening Constipation Muscle strain of right shoulder region Prediabetes On long-term drug therapy Multiple joint pain GERD without esophagitis Generalized anxiety disorder Fibromyalgia affecting multiple sites Depressive disorder Chronic bilateral low back pain with bilateral sciatica Compression fracture of T3 vertebra Lumbar back pain with radiculopathy affecting lower extremity Asthma History of COVID-19 (~02/2020) Hyperlipidemia Skin abscess Fracture of scaphoid bone of left wrist (01/19/19) Left radial head fracture (01/19/19) Bulging disc Anxiety Depression Personal history of arthritis HTN (hypertension) Surgical History Surgical History History of cholecystectomy (~2004) History of oophorectomy (~1999) History of medial meniscus repair of left knee (~2007) History of (~1987) Family History Family History Mother Hypertension Family history of osteoarthritis Family history of thyroid disease Family history of rheumatoid arthritis Father Hypertension Family history of diabetes mellitus in first degree relative Family history of renal failure Family history of heart disease in male family member before age 55 Family history of congestive heart failure Family history of coronary artery disease Diabetes mellitus Family history of osteoporosis Asthma Family history of osteoarthritis Family history of kidney disease Sibling Family history of kidney disease Asthma Family history of diabetes mellitus in first degree relative Family history of renal failure Grandparent Depression Family history of arthritis Family history of malignant neoplasm Family history of chronic obstructive pulmonary disease Family history of congestive heart failure Other Family history of cardiovascular disease Social History Social History Social History: Caffeine-daily Smoking status: Never smoker Alcohol intake: current Alcohol use details: rarely Substance use: never Substance use type: does not use Do You Feel Safe in your Home?: Yes Lack of Transportation: No Lack of Food: Never True Current Housing: I Have Housing Concerned About Future Housing: No Difficulty Paying Gas/Electric Bills: No Difficulty Paying for Meds: No Currently Unemployed: No Education: Associate Degree Difficulty w/ Childcare or Family Care: No Living arrangements: with family Additional living arrangements comments: Occupation/Education: occupation Gender identity (if verbalized by the patient): Female Sexual Orientation (if Verbalized by the Patient): Straight or Heterosexual Spiritual care concerns: No Agree to blood products: Yes Comments At time of signature, agree with nursing past medical, surgical, social and family history. There is no relevant family history pertinent to the presenting complaint Exam Narrative: GENERAL: Well-appearing, well-nourished, and in some acute distress.related to pain HEAD: Normocephalic, atraumatic. EYES: PERRLA and EOMI. ENT: Nares clear, no rhinorrhea or epistaxis. Mucous membranes moist.TM's normal throat pink without swelling NECK: Supple. no lymphadenopathy CHEST: Clear to auscultation. No respiratory distress. SAO2 99% on room air HEART: Regular rate and rhythm. No murmur heard. Normal peripheral pulses. ABDOMEN: Soft, nontender, nondistended, normal active bowel sounds. EXTREMITIES: Normal range of motion. No edema. Pain to lower back which radiates to right buttocks and to hip and around to right groin for the past 2 weeks. Patient reports that she has no tingling or numbness to her legs or feet,denies any difficulty with her bowels or bladder or any saddle paraesthesia.Patient reports previous history of thoracic vertebrae fracture and lumbar back pain. Reports that she knows she has arthritis in her lower back. SKIN: Warm, dry, no rash. NEURO: No focal deficits. Alert and oriented x3. Course Course Emergency Course: Patient is aware of diagnosis, understands and agrees to treatment plan.? Anticipatory guidance given.? Patient agrees to follow-up as directed and is aware of reasons to seek care at the emergency department. Portions of this record may have been created with voice recognition software Level of Care: Express Care Visit Vital Signs Vital signs: Vital Signs Temperature 36.6 C 01/22/25 16:46 Pulse Rate 74 01/22/25 16:46 Respiratory Rate 14 01/22/25 16:46 Blood Pressure 128/76 01/22/25 16:46 Pulse Oximetry 99 01/22/25 16:46 Oxygen Delivery Room Air 01/22/25 16:46 Temperature 36.6 C 01/22/25 16:46 Pulse Rate 74 01/22/25 16:46 Respiratory Rate 14 01/22/25 16:46 Blood Pressure 128/76 01/22/25 16:46 Pulse Oximetry 99 01/22/25 16:46 Oxygen Delivery Room Air 01/22/25 16:46 Reviewed MDM - Back Pain/Injury Differential Diagnosis Differential diagnosis: Likely lumbar radiculopathy, strain of lumbar region and other (arthritis lumbar spine. lumbar spine with right sciatica ) Medical Records Attestation: I reviewed the patient's medical records. Imaging Data Attestation: I personally reviewed and interpreted this imaging study as follows: My impression: no acute abnormalities seen does have significant degenerative changes lumbar spine Radiologist's impression: [place] [address] [place] [id number] XRay Report Signed Patient: Michelle Schmitt : 1970 MR#: [id number] Age: 54 Acct:[id number] Loc: [facility] ADM Date: 01/22/[address]: Ordering Physician: Camilla Bejarano APRN Date of Service: 01/22/25 Procedure(s): XR pelvis 1-2V Accession Number(s): [id number] cc: Becky Velazquez APRN; Camilla Bejarano APRN~ PROCEDURE(S): X-ray pelvis one to 2 views INDICATION(S): Injury and pain with right-sided sciatica COMPARISON(S): Studies dating back to 2021 TECHNIQUE: 1 radiographic images were submitted for interpretation. FINDINGS: Bones: There are no fractures seen. There are no destructive lesions or other lesions identified. Joints: There are no dislocations identified. There is no evidence of erosive arthropathy. Significant degenerative change of the small part of the lumbar spine which is seen. Multiple calcific densities in the pelvis are thought to represent phleboliths. IMPRESSION: No acute abnormalities are seen. Reviewed, dictated and finalized at location A. ET SPRINKLER Please be advised this is a medical document. It is intended for [id number] communication. It is written in medical language and may contain unfamiliar abbreviations or verbiage. Medical documents are intended to carry relevant information, facts as evident, and the clinical opinion of the practitioner at the time of the encounter. This report may have been done utilizing a voice recognition system. Attempts have been made to correct errors. However, there may be uncorrected grammatical, spelling, and recognition errors present. The file time of this note does not necessarily represent the time of service. Dictated By: Sallie Wong MD 01/22/25 [id number] Signed By: <Electronically signed by Sallie Wong MD in OV> Critical Care Time Critical Care Time Critical Care Time: No Discharge Plan Discharge Clinical Impression: Lumbar radiculopathy Strain of lumbar region Qualifiers: Encounter type: initial encounter Qualified Code(s): S39.012A - Strain of muscle, fascia and tendon of lower back, initial encounter Patient Disposition: Home Condition: Stable Instructions: Antibiotic Form, Low Back Strain (ED), Lumbar Radiculopathy (ED) Additional Instructions: Ice and heat to the area for 20-30 minutes Gentle stretching exercises Gentle massage Caution with lifting, bending, stooping, twisting Avoid pushing, pulling take muscle relaxants as directed--caution drowsiness and no driving or alcohol has Baclofen at home Anti-inflammatory medicine as directed--take with food He may take the muscle relaxant and anti-inflammatory at the same time Pain medicine as directed for severe pain--caution drowsiness-no driving or alcohol. If this medicine is a narcotic, you can become constipated. He may want to start a laxative right away.taking Tramadol has RX already Follow-up with your PCP if not improving in 5-7 days Prednisone for 5 days with start in a.m. If your symptoms persist, change or worsen significantly before you can contact your personal physician then please, without delay, go to the emergency department for further evaluation. Follow-up with PCP in 7-10 days or sooner if needed Follow up with PCP soon in regards to your blood pressure which is elevated above threshold for referral. Blood pressure above 120/80 may indicate pre- hypertension.129/76 Patient Language: Slovak Prescriptions: New prednisone 20 mg tablet 40 mg PO DAILY Qty: 10 0RF Rx Instructions: take with food No Action vitamin B complex PO multivitamin combination no.56 PO cholecalciferol (vitamin D3) 50 mcg (2,000 unit) tablet 50 mcg PO DAILY Qty: 90 2RF meloxicam 15 mg tablet 15 mg PO DAILY Qty: 90 1RF losartan 25 mg tablet 25 mg PO DAILY Qty: 90 1RF hydrochlorothiazide 12.5 mg tablet 12.5 mg PO DAILY Qty: 90 1RF omeprazole 20 mg capsule,delayed release(DR/EC) 20 mg PO DAILY Qty: 90 0RF Ozempic 1 mg/dose (4 mg/3 mL) pen injector 1 mg subcut WEEKLY Qty: 3 6RF sertraline 100 mg tablet 150 mg PO DAILY Qty: 135 0RF Rx Instructions: NEEDS APPOINTMENT FOR FURTHER REFILLS tramadol 50 mg tablet 50 mg PO Q8H PRN (Reason: pain) Qty: 90 0RF Follow-up/Referrals: Becky Velazquez APRN [Primary Care Provider, Family Practice] Time of Disposition: 18:47 Quality [place] Coma Scale Eyes: Open Verbal: Oriented and Alert Motor: Follows Commands Kareem Coma Total Score: 15
== END 2025-01-22 18:52 | disposition home or self-care (01) ==
PROVIDERS: Emergency Provider Registered Nurse; PCP Nurse Practitioner Family
DX: M54.16 Radiculopathy, lumbar region (principal); S39.012A Strain of muscle, fascia and tendon of lower back, initial encounter; X58.XXXA Exposure to other specified factors, initial encounter; E11.9 Type 2 diabetes mellitus without complications; Z79.85 Long-term (current) use of injectable non-insulin antidiabetic drugs; E78.5 Hyperlipidemia, unspecified; I10 Essential (primary) hypertension; M85.80 Other specified disorders of bone density and structure, unspecified site; K21.9 Gastro-esophageal reflux disease without esophagitis; M79.7 Fibromyalgia; J45.909 Unspecified asthma, uncomplicated; F41.9 Anxiety disorder, unspecified; F32.A Depression, unspecified; Z86.16 Personal history of COVID-19
CPT/HCPCS: 72170; 99213; G0463